=== PATIENT | female | born 1970 | race African-American/Black ===

== ENCOUNTER → 2016-07-04 | Outpatient (CLI) | payer OTHER ==
[~2016-07-04] MED LIST: [UNRECOGNIZED DRUG - REMARK]
[2016-07-04 10:11] LABS: BASO % 0.3 %; BASO ABS # 0.01 K/uL (0-0.2); COMPLETE YES; EOS % 7.8 %; HEMATOCRIT 38.1 % (37-47); LYMPH % 41.9 %; LYMPH ABS # 1.55 K/uL (1.2-3.4); MEAN CELL VOLUME 83.4 fL (80-100); MEAN CORPUSCULAR HEMOGLOBIN 28.9 pg (25-34); MEAN CORPUSCULAR HGB CONC 34.6 g/dl (32-36); MEAN PLATELET VOLUME 10.1 fL (7.4-10.4); MONO % 8.6 %; NEUT % 41.4 %; PLATELET COUNT 181 K/uL (130-400); RED BLOOD COUNT 4.57 M/uL (4.2-5.4)
[2016-07-04 11:24] LABS: ALKALINE PHOSPHATASE 94 U/L (45-117); ALT/SGPT 26 U/L (12-78); AST/SGOT 18 U/L (15-37); BLOOD UREA NITROGEN 13 mg/dl (7-18); BUN/CREATININE RATIO 22.3 (10-20); CALCIUM 8.9 mg/dl (8.5-10.1); CARBON DIOXIDE 27 mmol/L (21-32); CHLORIDE 106 mmol/L (98-107); GLUCOSE 83 mg/dl (70-99); HDL CHOLESTEROL 115 mg/dl; POTASSIUM 3.7 mmol/L (3.5-5.1); SODIUM 142 mmol/L (136-145)
[2016-07-04 11:25] LABS: CHOLESTEROL 237 mg/dl (0-200); CHOLESTEROL/HDL RATIO 2.1; LDL CHOLESTEROL CALCULATED 114 mg/dl; TRIGLYCERIDES 38 mg/dl (0-150); VERY LOW DENSITY LIPOPROT CALC 8 mg/dl
[2016-07-06 19:32] LABS: LSP % CELLS ANALYZED CD4 31 % (30-61); LSP ABSOLUTE CT CD4 492 cells/uL (490-1740); LSP LYMPHOCYTES ABSOLUTE 1598 cells/uL (850-3900)
== END | disposition home or self-care (01) ==
LOC: C.LAB 09:06
PROVIDERS: ATTEND Internal Medicine Infectious Disease
DX: B20 Human immunodeficiency virus [HIV] disease (principal)

== ENCOUNTER → 2017-03-07 | Outpatient (CLI) | payer OTHER ==
[2017-03-07 12:15] LABS: BASO % 0.6 %; BASO ABS # 0.02 K/uL (0-0.2); COMPLETE YES; EOS % 14.8 %; HEMATOCRIT 35.4 % (37-47); IG% 0.3 %; LYMPH % 43.7 %; LYMPH ABS # 1.45 K/uL (1.2-3.4); MEAN CELL VOLUME 85.1 fL (80-100); MEAN CORPUSCULAR HEMOGLOBIN 29.3 pg (25-34); MEAN CORPUSCULAR HGB CONC 34.5 g/dl (32-36); MEAN PLATELET VOLUME 9.9 fL (7.4-10.4); MONO % 7.2 %; NEUT % 33.4 %; PLATELET COUNT 162 K/uL (130-400); RED BLOOD COUNT 4.16 M/uL (4.2-5.4); WHITE BLOOD COUNT 3.32 K/uL (4.8-10.8)
[2017-03-07 12:34] LABS: ALKALINE PHOSPHATASE 85 U/L (45-117); ALT/SGPT 23 U/L (12-78); AST/SGOT 19 U/L (15-37); BLOOD UREA NITROGEN 15 mg/dl (7-18); BUN/CREATININE RATIO 25.9 (10-20); CALCIUM 9.1 mg/dl (8.5-10.1); CARBON DIOXIDE 28 mmol/L (21-32); CHLORIDE 107 mmol/L (98-107); CHOLESTEROL 186 mg/dl (0-200); CREATININE 0.58 mg/dl (0.60-1.20); GLUCOSE 88 mg/dl (70-99); POTASSIUM 4.2 mmol/L (3.5-5.1); SODIUM 140 mmol/L (136-145); TRIGLYCERIDES 67 mg/dl (0-150); VERY LOW DENSITY LIPOPROT CALC 13 mg/dl
[2017-03-07 12:36] LABS: CHOLESTEROL/HDL RATIO 2.3; HDL CHOLESTEROL 82 mg/dl; LDL CHOLESTEROL CALCULATED 91 mg/dl
[2017-03-09 20:36] LABS: LSP % CELLS ANALYZED CD4 33 % (30-61); LSP ABSOLUTE CT CD4 457 cells/uL (490-1740); LSP LYMPHOCYTES ABSOLUTE 1378 cells/uL (850-3900)
== END | disposition home or self-care (01) ==
LOC: C.LAB1850 11:10
PROVIDERS: ATTEND Internal Medicine Infectious Disease
DX: B20 Human immunodeficiency virus [HIV] disease (principal)

== ENCOUNTER → 2017-08-24 | Outpatient (CLI) | payer OTHER ==
[2017-08-24 12:05] LABS: BASO % 0.6 %; BASO ABS # 0.02 K/uL (0-0.2); EOS ABS # 0.51 K/uL (0-0.5); HEMOGLOBIN 12.2 g/dL (12.0-16.0); LYMPH % 45.9 %; LYMPH ABS # 1.56 K/uL (1.2-3.4); MEAN CELL VOLUME 84.7 fL (80-100); MEAN CORPUSCULAR HEMOGLOBIN 29.5 pg (25-34); MEAN CORPUSCULAR HGB CONC 34.9 g/dl (32-36); MEAN PLATELET VOLUME 9.7 fL (7.4-10.4); MONO % 7.4 %; MONO ABS # 0.25 K/uL (0.11-0.59); NEUT % 31.1 %; NEUT ABS # 1.06 K/uL (1.4-6.5); PLATELET COUNT 167 K/uL (130-400); RED CELL DISTRIBUTION WIDTH CV 13.8 % (11.5-14.5); RED CELL DISTRIBUTION WIDTH SD 42.7 fL (36.4-46.3)
[2017-08-24 12:14] LABS: ALBUMIN 3.5 gm/dl (3.4-5.0); ALT/SGPT 24 U/L (12-78); BLOOD UREA NITROGEN 12 mg/dl (7-18); CALCIUM 8.5 mg/dl (8.5-10.1); CARBON DIOXIDE 29 mmol/L (21-32); CHOLESTEROL 188 mg/dl (0-200); CREATININE 0.58 mg/dl (0.60-1.20); GLUCOSE 84 mg/dl (70-99); POTASSIUM 3.9 mmol/L (3.5-5.1); SODIUM 139 mmol/L (136-145)
[2017-08-24 12:17] LABS: ALKALINE PHOSPHATASE 76 U/L (45-117); AST/SGOT 18 U/L (15-37); LDL CHOLESTEROL CALCULATED 87 mg/dl; TOTAL PROTEIN 6.9 gm/dl (6.4-8.2)
[2017-08-26 23:59] LABS: LSP % CELLS ANALYZED CD4 31 % (30-61); LSP ABSOLUTE CT CD4 485 cells/uL (490-1740)
== END | disposition home or self-care (01) ==
LOC: C.LAB1850 10:25
PROVIDERS: ATTEND Internal Medicine Infectious Disease
DX: B20 Human immunodeficiency virus [HIV] disease (principal)

== ENCOUNTER → 2018-02-21 | Outpatient (CLI) | payer OTHER ==
[2018-02-21 10:14] LABS: BASO % 0.5 %; BASO ABS # 0.02 K/uL (0-0.2); EOS % 15.6 %; HEMATOCRIT 37.9 % (37-47); HEMOGLOBIN 12.8 g/dL (12.0-16.0); LYMPH % 41.7 %; MEAN CELL VOLUME 85.4 fL (80-100); MEAN CORPUSCULAR HEMOGLOBIN 28.8 pg (25-34); MEAN CORPUSCULAR HGB CONC 33.8 g/dl (32-36); MONO % 6.3 %; MONO ABS # 0.24 K/uL (0.11-0.59); NEUT % 35.9 %; NEUT ABS # 1.38 K/uL (1.4-6.5); PLATELET COUNT 174 K/uL (130-400); RED CELL DISTRIBUTION WIDTH CV 14.1 % (11.5-14.5); RED CELL DISTRIBUTION WIDTH SD 43.6 fL (36.4-46.3); WHITE BLOOD COUNT 3.84 K/uL (4.8-10.8)
[2018-02-21 11:12] LABS: ALBUMIN 3.6 gm/dl (3.4-5.0); ALKALINE PHOSPHATASE 86 U/L (45-117); ALT/SGPT 25 U/L (12-78); AST/SGOT 18 U/L (15-37); BLOOD UREA NITROGEN 11 mg/dl (7-18); CALCIUM 9.1 mg/dl (8.5-10.1); CARBON DIOXIDE 27 mmol/L (21-32); CHOLESTEROL 213 mg/dl (0-200); CREATININE 0.57 mg/dl (0.60-1.20); GLUCOSE 79 mg/dl (70-99); LDL CHOLESTEROL CALCULATED 98 mg/dl; POTASSIUM 4.2 mmol/L (3.5-5.1); SODIUM 141 mmol/L (136-145); TOTAL PROTEIN 7.4 gm/dl (6.4-8.2)
[2018-02-24 14:32] LABS: LSP % CELLS ANALYZED CD4 31 % (30-61); LSP ABSOLUTE CT CD4 474 cells/uL (490-1740)
== END | disposition home or self-care (01) ==
LOC: C.LAB1850 09:30
PROVIDERS: ATTEND Internal Medicine Infectious Disease
DX: B20 Human immunodeficiency virus [HIV] disease (principal)

== ENCOUNTER 2020-08-12 11:31 | Inpatient (IN) ==
[2020-08-12] MEDS ORDERED: SODIUM CHLORIDE 0.9% 1000ML 1,000 ML IV SCH (12:30)
--- NOTE | 2020-08-12 12:53 | XRay Report ---
XR chest 1V portable CLINICAL HISTORY: SEPSIS COMPARISON STUDY: Chest radiograph August 04, 2010. FINDINGS: Mild cardiomegaly is noted. There is mild interstitial thickening. Mild left basilar opacit y is present. There is no pneumothorax or pleural effusion. IMPRESSION: 1. Mild interstitial thickening. This may reflect pulmonary vascular congestion on an infectious proc ess. 2. Mild left basilar opacity. 3. Cardiomegaly. ACT 112: Negative or not required by law. Electronically signed by: Kai Villanueva M.D. 08/12/2020 12:52 PM
[2020-08-12] MEDS ORDERED: CEFEPIME 2,000 MG/20 ML VIAL IV STA (13:07)
[2020-08-12 13:14] LABS: Mean Corpuscular Hgb Conc 34.8 g/dL (32-36); Platelet Count 111 K/uL (130-400)
[2020-08-12 13:17] LABS: INR 1.1 (0.9-1.1); Partial Thromboplastin Ratio 0.8; Partial Thromboplastin Time 21.8 Seconds (21.0-31.0)
[2020-08-12 13:21] LABS: Albumin Level 2.5 gm/dl (3.4-5.0); BUN Creatinine Ratio 8.7 (10-20); Calcium 8.2 mg/dl (8.5-10.1); Creatinine Clr Calc Pharmacy 52.3 ml/min; Est GFR (African American) 59.2; Est GFR (Non-African American) 51.1; Magnesium 1.8 mg/dl (1.8-2.4); Potassium 3.3 mmol/L (3.5-5.1)
[2020-08-12 13:24] LABS: Albumin Globulin Ratio 0.6 (0.9-2); Bilirubin,Total 1.8 mg/dl (0.2-1); Globulin 4.2 gm/dl (2.5-4.0); Total Protein 6.7 gm/dl (6.4-8.2)
[2020-08-12 13:47] LABS: Appearance Urine Clear (Clear); Bacteria Urine Automated Negative (Negative); Blood Urine 2+ (Negative); Color Urine Dark Yellow; Epithelial Cell Urine Auto >30 /lpf (0-5); Glucose Urine UA Negative (Negative); Ketones Urine Trace (Negative); Leukocyte Esterase Urine Negative (Negative); Nitrite Urine Negative (Negative); Protein Urine 1+ (Negative); Specific Gravity Urine 1.014 (1.000-1.030); Urobilinogen Urine Negative (Negative)
[2020-08-12 13:49] LABS: Bilirubin Urine 1+ (Negative)
[2020-08-12 13:49] LABS: Hematocrit (blood only) 19.8 % (37-47); Hemoglobin 6.9 g/dL (12.0-16.0); Mean Corpuscular Hemoglobin 27.9 pg (25-34); Mean Corpuscular Volume 80.2 fL (80-100); Nucleated RBC # (auto) 0.03 K/uL (0-0); Nucleated RBC % (auto) 0.8 %; RDW Coefficient of Variation 15.6 % (11.5-14.5); RDW Standard Deviation 44.3 fL (36.4-46.3); Red Blood Count 2.47 M/uL (4.2-5.4); White Blood Count 3.32 K/uL (4.8-10.8)
[2020-08-12 14:01] LABS: Basophils # (auto) 0.01 K/uL (0-0.2); Basophils % (auto) 0.3 %; Eosinophils # (auto) 0.02 K/uL (0-0.5); Eosinophils % (auto) 0.6 %; Immature Granulocytes # (auto) 0.05 K/uL (0.00-0.02); Immature Granulocytes % (auto) 1.5 %; Lymphocytes # (auto) 1.17 K/uL (1.2-3.4); Lymphocytes % (auto) 35.2 %; Monocytes # (auto) 0.55 K/uL (0.11-0.59); Monocytes % (auto) 16.6 %; Neutrophils # (auto) 1.52 K/uL (1.4-6.5); Neutrophils % (auto) 45.8 %; Polychromasia 1+
[2020-08-12] MEDS ORDERED: SODIUM CHLORIDE 0.9% 250 ML IV PRN ×2 (14:08→18:58)
[2020-08-12 14:23] LABS: Influenza A virus by PCR Negative (Neg); Influenza B virus by PCR Negative (Neg); RSV by PCR Negative (Neg); SARS CoV2 RNA(COVID-19) InHosp NEGATIVE (Negative)
[2020-08-12 14:27] LABS: Reticulocyte % 4.9 % (0.5-2.0); Reticulocytes # 0.12 10^6/uL (0.02-0.10)
[2020-08-12] MEDS ORDERED: SODIUM CHLORIDE 0.9% 1000ML 1,000 ML IV ONE (14:35)
--- NOTE | 2020-08-12 16:00 | History & Physical Report ---
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 Recommended treatment with corticosteroids, prednisone recommended initial dose of 1.01.5 mg/kg/day for 13 weeks until hemoglobin levels greater than 10 g/dL are reached. Response occurs mainly during the second week, and if none or minimal improvement is observed in the third week, this therapy is assumed to be ineffective. After stabilization of hemoglobin, prednisone should be gradually and slowly tapered off at 1015 mg weekly to a daily dose of 2030 mg, then by 5 mg every 12 weeks until a dose of 15 mg, and subsequently by 2.5 mg every two weeks with the aim of withdrawing the drug. (2) ALEX (acute kidney injury): concern from hemolysis, will hydrate and follow patient is of some mild hypokalemia she will be given 1 dose of potassium 20 mEq tonight and follow her labs in the morning (3) HIV disease: continues on tenofov, will ask pt to bring it in (4) Fever: maybe from hemolysis, will obtain blood and urine cultures and given persistent fever will continue Cefepime as the antibiotic, , CXR does not look specific (5) Hypertension: continues on amlodipine and coreg, will have hydralazine prn, and hold losartan with alex patient (6) DVT prophylaxis: scd History of Present Illness Primary Care Provider: Theresa Tang MD Patient presents to the emergency department with arthralgias myalgias and fevers. Patient was recently treated to [facility] with Artesunate for malaria. She presents to our institution tonight hypertensive and tachycardic with a temperature of 99.7 (Covid negative). She is anemia with hemoglobin 6.9 thrombocytopenia with a platelet count of 111 leukopenia with white count of 3.32. Patient is HIV positive and takes antiviral medications. However there is concern with elevation of LDH elevation of her bili and some microscopic hematuria. A pending Adela and haptoglobin test. The concern is that she may have hemolytic anemia which is also been associated with the use of the medication she had for malaria. She additionally has acute kidney injury with creatinine 1.23 elevation of her bili and transaminases A peripheral smear was performed on admission and did not show any inclusion bodies to be consistent with parasite blood infection Allergies Allergy/AdvReac Type Severity Reaction Status Date / Time Sulfa (Sulfonamide Allergy SWELLING Verified 08/12/20 13:27 Antibiotics) OF FACE Home Medications Medication Instructions Recorded Confirmed Type fluocinonide 0.05 % topical 1 appln TOPICAL TID #1 gm 02/25/19 08/12/20 History ointment amlodipine 10 mg tablet 10 mg PO DAILY #90 tab 03/15/20 08/12/20 Rx carvedilol 25 mg tablet 25 mg PO BID #180 tab 03/15/20 08/12/20 Rx losartan 100 1 tab PO DAILY #90 tab 03/15/20 08/12/20 Rx mg-hydrochlorothiazide 25 mg tablet skpaayeya-[id number]-ufapvxi 1 tab PO DAILY 08/04/20 08/12/20 History Past Med/Surg History Medical History Herpes zoster HIV disease Hypertension Surgical History H/O tooth extraction Family History Mother Diabetes Hypertension Father , 60s No problems noted. Brother Hypertension Brother No problems noted. Sister Hypertension Sister , 45 No problems noted. Son Meningitis Son No problems noted. Son No problems noted. 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 Beliefs That Will Affect Care: Anglican Anglican Beliefs: Druze marital status: Single Current Living Situation: Family Current Living Situation Comment: lives with son current occupational status: employed current occupation: [employer] Other Information That Helps Us Care for You: No Feels Safe at Home: Yes Safety Concerns: Feels Safe At This Time Childhood Exposure to Second-Hand Smoke: No Dental Care, Regularly: Yes Physical Activity Frequency: Does not Exercise Seatbelt Use: always Sunscreen Use: Yes Assistive Devices: Denture - Lower Review of Systems Review of Systems: Moderate distress and fatigue, arthralgias and myalgias no headache, blurry or double vision no speech or swallowing issues no chest pain, pressure or palpitations no shortness of breath, cough or wheezes no abdominal pain, tickly in the left upper quadrant plain nausea or vomiting, recently has had increasing diarrhea no dysuria, but of some mild color change to her urine but this is since cleared no focal joint pain or swelling of painful joints diffusely and myalgias no back pain, CVA tenderness or radicular pain no bruising, bleeding or rashes no focal signs of weakness or numbness or altered sensation no complaints of anxiety or depression.. Physical Exam Physical Exam: The patient appeared well nourished and normally developed. He is in mild to moderate distress Vital signs as documented. Head exam is normocephalic atraumatic no scleral icterus Neck is without JVD, thyromegaly, or carotid bruits. Lungs are clear to auscultation, no focal loss of breath sounds Cardiac exam, Rhythm is regular.. No murmurs, rubs or gallops. Abdominal exam reveals normal bowel sounds, soft non tender, no masses no hepatosplenomegaly is noted Extremities are nonedematous and both pedal pulses are present Neurologic exam is alert and oriented, no focal loss of strength or sensation Skin is without bruises or rashes Psychologically is without concerns for anxiety or depression Results & Data Results & [facility] Vital Signs (Past 12 Hours) Vital Signs Temp Pulse Pulse Resp BP BP Pulse Ox 08/12/20 15:30 113 H 27 H 167/96 H 94 08/12/20 15:00 117 H 23 141/89 H 100 08/12/20 14:58 115 H 24 137/83 99 08/12/20 14:00 115 H 20 174/104 H 94 08/12/20 13:30 116 H 34 H 163/99 H 95 08/12/20 13:00 108 H 20 148/84 H 97 08/12/20 12:30 113 H 22 167/106 H 100 08/12/20 12:25 99.7 F H 08/12/20 12:11 111 H 20 127/87 98 08/12/20 11:34 98.6 F 121 H 18 154/90 H 97 EKG shows sinus tachycardia without acute changes Chest x-ray shows mild interstitial thickening mild basilar opacity and cardiomegaly however clinically this does not appear to be infectious to me. The patient did receive 1 dose of cefepime in the ER blood cultures were obtained at this time PG Care Time/CCT Total # of Minutes Spent Total Time Spent with Patient: Total time spent is greater than 50% in coordination of care (as documented) at patient's floor/unit and/or counseling patient: Coding Level of Care Code 83837 Initial Inpt Care Lvl 3 Diagnoses Hemolytic anemia D58.9 ALEX (acute kidney injury) N17.9 HIV disease B20 Fever R50.81 Fever type: due to other condition Hypertension I10 DVT prophylaxis Z29.9 (1) Fever Fever type: due to other condition Qualified Code(s): R50.81 - Fever presenting with conditions classified elsewhere
[2020-08-12] MEDS ORDERED: predniSONE 20 MG TAB PO SCH ×2 (16:15→17:15)
--- NOTE | 2020-08-12 16:35 | Electrocardiogram Report ---
Test Reason : Blood Pressure : / mmHG Vent. Rate : 110 BPM Atrial Rate : 110 BPM P-R Int : 168 ms QRS Dur : 078 ms QT Int : 344 ms P-R-T Axes : 042 072 078 degrees QTc Int : 465 ms Sinus tachycardia Otherwise normal ECG When compared with ECG of 04-AUG-2020 09:49, Nonspecific T wave abnormality no longer evident in Lateral leads Confirmed by Sanjay Hill ([id number]) on 08/12/2020 4:34:44 PM Referred By: Confirmed By:Sanjay Hill
[2020-08-12] MEDS ORDERED: predniSONE 50 MG TAB PO SCH ×2 (16:45→17:15)
[2020-08-12] MEDS ORDERED: ONDANSETRON INJ 2 MG/ML 2 ML VIAL IV PRN (18:58)
[2020-08-12] MEDS ORDERED: ALUMINUM/MAGNESIUM SUSP 30 ML UDC PO PRN (18:58)
[2020-08-12] MEDS ORDERED: ACETAMINOPHEN 325 MG TAB PO PRN (18:58)
[2020-08-12] MEDS ORDERED: cloNIDine HCL 0.1 MG TAB PO PRN (18:58)
[2020-08-12] MEDS ORDERED: LORazepam 0.5 MG TAB PO PRN (18:58)
[2020-08-12] MEDS ORDERED: Nursing to Pharmacy Communication SCH (19:45)
[2020-08-12] MEDS ORDERED: hydrALAZINE HCL 20 MG/ML VIAL IV PRN (20:26)
[2020-08-12] MEDS ORDERED: oxyCODONE HCL IR 5 MG TAB (IMMEDIATE RELEASE) PO PRN (20:26)
[2020-08-12] MEDS ORDERED: POTASSIUM CHLORIDE CRTAB 20 MEQ TABCR PO ONE (20:28)
[2020-08-12] MEDS ORDERED: POTASSIUM CHLORIDE CRTAB 20 MEQ TABCR PO SCH (21:00)
[2020-08-12] MEDS: FLUOCINONIDE 0.05% OINT 15 GM TUBE EXT SCH (21:18)
[2020-08-12] MEDS: carvediloL 25 MG TAB PO SCH (21:18)
[2020-08-12] MEDS: [UNRECOGNIZED DRUG - OTHER] PO SCH (21:18)
[2020-08-12] MEDS: FAMOTIDINE 40 MG TABLET PO SCH (21:19)
[2020-08-13] MEDS: CEFEPIME 2,000 MG in SYRINGE 0 ML IV SCH ×2 (01:12→12:07)
[2020-08-13 06:37] LABS: Hemoglobin 8.7 g/dL (12.0-16.0); Mean Corpuscular Hemoglobin 28.4 pg (25-34); Mean Corpuscular Hgb Conc 34.8 g/dL (32-36); Mean Corpuscular Volume 81.7 fL (80-100); Mean Platelet Volume 10.5 fL (7.4-10.4); Platelet Count 124 K/uL (130-400); RDW Standard Deviation 45.8 fL (36.4-46.3); Red Blood Count 3.06 M/uL (4.2-5.4); White Blood Count 4.36 K/uL (4.8-10.8)
--- NOTE | 2020-08-13 07:12 | Emergency Department Note ---
Impression & Plan Hemolytic anemia, History of malaria, HIV (human immunodeficiency virus infection) ED Provider Note NAME: OKSANA MALIK AGE: 49 SEX: F ARRIVES VIA: Walk-In INFORMANT: Patient ED PROVIDER(S): Coni Mahmood MD CHIEF COMPLAINT: Tachycardia, fatigue PLAN: Disposition: Inpatient Condition: Fair Referral: Hospitalist MEDICAL DECISION MAKING:Pt was evaluated and appeared to be in no distress. IV access was obtained and lab work was drawn. 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 She was hydrated with 2 L IV NSS. Lab work reveals a significant anemia with hgb at 6.9, bilirubin of 1.8 with elevated but improving LFTs. Blood cx were sent and pt was medicated with 2gm of IV cefepime. CXR is significant for mild interstitial thickening. RSV, influenza and COVID testing are negative. Pt was consented for transfusion. PRBC x 2 units were administered and the pt was discussed with the hospitalist service for further management. Triage Nursing notes reviewed. Prior medical records reviewed [facility] d/c summary Vital Signs: reviewed and remarkable for tachycardia Differential diagnosis: Viral syndrome, medication reaction, otitis, pharyngitis, pneumonia, influenza, meningitis, urinary tract infection, sepsis, bacteremia, as well as other pathologies. ER treatment provided: IV NSS IV cefepime Diagnostics interpreted by me: ECG: ST at 110 bpm, normal ST segments, QTc prolonged 465, no PVC, no PAC. Cardiac Monitoring: An order for cardiac monitoring was placed and pt was noted to be in a ST at 121 bpm. Laboratory studies: See below Imaging studies: XR chest 1V portable CLINICAL HISTORY: SEPSIS COMPARISON STUDY: Chest radiograph August 04, 2010. FINDINGS: Mild cardiomegaly is noted. There is mild interstitial thickening. Mild left basilar opacity is present. There is no pneumothorax or pleural effusion. IMPRESSION: 1. Mild interstitial thickening. This may reflect pulmonary vascular congestion on an infectious process. 2. Mild left basilar opacity. 3. Cardiomegaly. ACT 112: Negative or not required by law. Electronically signed by: Kai Villanueva M.D. 08/12/2020 12:52 PM Dictated: 08/12/20 1245Transcribed: 08/12/20 1245 Consultation(s): Pharmacy Hospitalist HPI: 49/F arrives for evaluation of high heart rate, fatigue and general illness. Pt was sent to [facility] a bit over 1 week ago after a diagnosis of malaria. Pt was treated with Artesunate. She states she was d/c without any further medications, being told she completed the course of treatment. Pt saw her PCP today in followup but began to feel worse over the last few days. She denies high fevers, but admits to fatigue and aches. She denies significant SOB, cough, v/d/ Pt is known to be to HIV positive and states her viral load is undetectable. ROS: See above HPI for pertinent positives & negatives. A total of 10 systems reviewed and were otherwise negative. PAST MEDICAL HISTORY:See Below PAST SURGICAL HISTORY:See Below FAMILY HISTORY:See Below SOCIAL HISTORY:See Below HOME MEDICATIONS:See Below ALLERGIES:See Below VITALS:See Below PHYSICAL EXAMINATION: Vital signs reviewed. General: Somewhat ill appearing 49 yo female, in no significant distress. HEENT: No scleral icterus, PERRLA, neck supple. Atraumatic. Cardiovascular: Tachycardic and regular, no extra sounds. Pulmonary: Clear to auscultation bilaterally, normal work of breathing. Abdomen: Soft, nontender, nondistended, positive bowel sounds. Musculoskeletal: Atraumatic, no peripheral edema. Neurologic: Patient awake alert and oriented x 3, no meningeal signs Skin: Warm, dry, no rash The high probability of a clinically significant, sudden or life threatening deterioration required my full and direct attention, intervention and personal management. The aggregate critical care time was 40 minutes. This time is in addition to time spent performing reported procedures but includes the following: [x] Data Review and interpretation [x] Patient assessment and monitoring of vital signs [x] Documentation [x] Medication orders and management Coni Mahmood MD Past Med/Surg History Medical History Herpes zoster HIV disease Hypertension Surgical History H/O tooth extraction Family History Mother Diabetes Hypertension Father , 60s No problems noted. Brother Hypertension Brother No problems noted. Sister Hypertension Sister , 45 No problems noted. Son Meningitis Son No problems noted. Son No problems noted. Denies family history of Ovarian cancer Prostate cancer Myocardial infarction Breast cancer Colorectal cancer Social History Smoking Status: Never smoker Hx Alcohol Use: Yes Alcohol type: beer Alcohol Intake Frequency: 2-3 x/Week Hx Substance Use: No Preferred Language: Spanish Communication Ability: Effective Food And Beverage Outlets Manager Required: No Beliefs That Will Affect Care: Tenriism Tenriism Beliefs: Zoroastrianism marital status: Single Current Living Situation: Family Current Living Situation Comment: lives with son current occupational status: employed current occupation: [employer] Other Information That Helps Us Care for You: No Feels Safe at Home: Yes Safety Concerns: Feels Safe At This Time Childhood Exposure to Second-Hand Smoke: No Dental Care, Regularly: Yes Physical Activity Frequency: Does not Exercise Seatbelt Use: always Sunscreen Use: Yes Assistive Devices: None Allergies Allergies Allergy/AdvReac Type Severity Reaction Status Date / Time Sulfa (Sulfonamide Allergy SWELLING Verified 08/12/20 13:27 Antibiotics) OF FACE Home Meds Home Medications Medication Instructions Recorded Confirmed fluocinonide 0.05 % topical 1 appln TOPICAL TID #1 gm 02/25/19 08/12/20 ointment [id number]-[id number]-[id number] 1 tab PO DAILY 08/04/20 08/12/20 Previous Rx's Medication Instructions Recorded amlodipine 10 mg tablet 10 mg PO DAILY #90 tab 03/15/20 carvedilol 25 mg tablet 25 mg PO BID #180 tab 03/15/20 losartan 100 1 tab PO DAILY #90 tab 03/15/20 mg-hydrochlorothiazide 25 mg tablet Results & Data (ED) Vital Signs Vital Signs - 24 hr 08/12/20 11:34 08/12/20 12:11 08/12/20 12:23 Temperature 37 C Temperature Source Temporal Artery Scan Pulse Rate 121 H Pulse Rate [Apical] 111 H Pulse Rate from SpO2 Sensor Respiratory Rate 18 20 Respiratory Effort / Characteristics Non-Labored Spontaneous Non-Labored Non-Labored Spontaneous Respiratory Depth Normal Normal Blood Pressure 154/90 H Blood Pressure [Left Arm] 127/87 Blood Pressure Mean 111 Blood Pressure Mean [Left Arm] 100 Pulse Oximetry 97 98 Oxygen Delivery Method Room Air Room Air Sepsis Recent Fever Within 48 Hours No Sepsis New/Unexplained Change in Mental Status No Sepsis Action Taken by Nursing No Action Required 08/12/20 12:25 08/12/20 12:30 08/12/20 13:00 Temperature 37.6 C H Temperature Source Oral Pulse Rate 113 H 108 H Pulse Rate [Apical] Pulse Rate from SpO2 Sensor 113 H 108 H Respiratory Rate 22 20 Respiratory Effort / Characteristics Respiratory Depth Blood Pressure 167/106 H 148/84 H Blood Pressure [Left Arm] Blood Pressure Mean 126 105 Blood Pressure Mean [Left Arm] Pulse Oximetry 100 97 Oxygen Delivery Method Room Air Room Air Sepsis Recent Fever Within 48 Hours Sepsis New/Unexplained Change in Mental Status Sepsis Action Taken by Nursing 08/12/20 13:30 08/12/20 14:00 08/12/20 14:58 Temperature Temperature Source Pulse Rate 116 H 115 H 115 H Pulse Rate [Apical] Pulse Rate from SpO2 Sensor 116 H 115 H 117 H Respiratory Rate 34 H 20 24 Respiratory Effort / Characteristics Respiratory Depth Blood Pressure 163/99 H 174/104 H 137/83 Blood Pressure [Left Arm] Blood Pressure Mean 120 127 101 Blood Pressure Mean [Left Arm] Pulse Oximetry 95 94 99 Oxygen Delivery Method Room Air Room Air Room Air Sepsis Recent Fever Within 48 Hours Sepsis New/Unexplained Change in Mental Status Sepsis Action Taken by Nursing 08/12/20 15:00 08/12/20 15:30 Temperature Temperature Source Pulse Rate 117 H 113 H Pulse Rate [Apical] Pulse Rate from SpO2 Sensor 117 H 113 H Respiratory Rate 23 27 H Respiratory Effort / Characteristics Respiratory Depth Blood Pressure 141/89 H 167/96 H Blood Pressure [Left Arm] Blood Pressure Mean 106 119 Blood Pressure Mean [Left Arm] Pulse Oximetry 100 94 Oxygen Delivery Method Room Air Room Air Sepsis Recent Fever Within 48 Hours Sepsis New/Unexplained Change in Mental Status Sepsis Action Taken by Nursing Laboratory Data Result diagrams: 08/13/20 05:55 08/12/20 12:48 Lab Results 08/12/20 08/12/20 08/12/20 Range/Units 12:45 12:48 12:48 WBC 3.32 L (4.8-10.8) K/uL RBC 2.47 L (4.2-5.4) M/uL Hgb 6.9 L* (12.0-16.0) g/dL Hct 19.8 L* (37-47) % MCV 80.2 (80-100) fL MCH 27.9 (25-34) pg MCHC 34.8 (32-36) g/dL RDW Std Deviation 44.3 (36.4-46.3) fL RDW Coeff of Raphael 15.6 H (11.5-14.5) % Plt Count 111 L (130-400) K/uL MPV 10.0 (7.4-10.4) fL Immature Gran % (Auto) 1.5 % Neut % (Auto) 45.8 % Lymph % (Auto) 35.2 % [place] % (Auto) 16.6 % Eos % (Auto) 0.6 % Baso % (Auto) 0.3 % Reticulocyte % (Auto) (0.5-2.0) % Neut # (Auto) 1.52 (1.4-6.5) K/uL Lymph # (Auto) 1.17 L (1.2-3.4) K/uL [place] # (Auto) 0.55 (0.11-0.59) K/uL Eos # (Auto) 0.02 (0-0.5) K/uL Baso # (Auto) 0.01 (0-0.2) K/uL Reticulocyte # (0.02-0.10) 10^6/uL Immature Gran # (Auto) 0.05 H (0.00-0.02) K/uL Absolute Nucleated RBC 0.03 H (0-0) K/uL Nucleated RBC % (auto) 0.8 % Polychromasia 1+ PT 11.0 (9.0-12.0) Seconds INR 1.1 (0.9-1.1) APTT 21.8 (21.0-31.0) Seconds PTT Ratio 0.8 Sodium (136-145) mmol/L Potassium (3.5-5.1) mmol/L Chloride (98-107) mmol/L Carbon Dioxide (21-32) mmol/L Anion Gap (3-11) BUN (7-18) mg/dl Creatinine (0.6-1.2) mg/dl Est Cr Clr Drug Dosing ml/min Est GFR ( Amer) Est GFR (Non-Af Amer) BUN/Creatinine Ratio (10-20) Glucose (70-99) mg/dl Lactate (0.4-2.0) mmol/L Calcium (8.5-10.1) mg/dl Magnesium (1.8-2.4) mg/dl Total Bilirubin (0.2-1) mg/dl AST (15-37) U/L ALT (12-78) U/L Alkaline Phosphatase (45-117) U/L Lactate Dehydrogenase 608 H (84-246) U/L Total Protein (6.4-8.2) gm/dl Albumin (3.4-5.0) gm/dl Globulin (2.5-4.0) gm/dl Albumin/Globulin Ratio (0.9-2) Procalcitonin (0-0.5) ng/ml Urine Color Urine Appearance (Clear) Urine pH (4.5-7.5) Ur Specific [place] (1.000-1.030) Urine Protein (Negative) Urine Glucose (UA) (Negative) Urine Ketones (Negative) Urine Blood (Negative) Urine Nitrite (Negative) Urine Bilirubin (Negative) Urine Urobilinogen (Negative) Ur Leukocyte Esterase (Negative) Urine WBC (Auto) (0-5) /hpf Urine RBC (Auto) (0-4) /hpf U Hyaline Cast (Auto) (0-5) /lpf U Epithel Cells (Auto) (0-5) /lpf Urine Bacteria (Auto) (Negative) Nasal Screen MRSA (PCR) (Negative) COVID-19 Eval Order SARS-CoV-2 (PCR) (Negative) Influenza Type A (PCR) (Neg) Influenza Type B (PCR) (Neg) RSV (RT-PCR) (Neg) 08/12/20 08/12/20 08/12/20 Range/Units 12:48 12:48 12:48 WBC (4.8-10.8) K/uL RBC (4.2-5.4) M/uL Hgb (12.0-16.0) g/dL Hct (37-47) % MCV (80-100) fL MCH (25-34) pg MCHC (32-36) g/dL RDW Std Deviation (36.4-46.3) fL RDW Coeff of Raphael (11.5-14.5) % Plt Count (130-400) K/uL MPV (7.4-10.4) fL Immature Gran % (Auto) % Neut % (Auto) % Lymph % (Auto) % [place] % (Auto) % Eos % (Auto) % Baso % (Auto) % Reticulocyte % (Auto) (0.5-2.0) % Neut # (Auto) (1.4-6.5) K/uL Lymph # (Auto) (1.2-3.4) K/uL [place] # (Auto) (0.11-0.59) K/uL Eos # (Auto) (0-0.5) K/uL Baso # (Auto) (0-0.2) K/uL Reticulocyte # (0.02-0.10) 10^6/uL Immature Gran # (Auto) (0.00-0.02) K/uL Absolute Nucleated RBC (0-0) K/uL Nucleated RBC % (auto) % Polychromasia PT (9.0-12.0) Seconds INR (0.9-1.1) APTT (21.0-31.0) Seconds PTT Ratio Sodium 138 (136-145) mmol/L Potassium 3.3 L (3.5-5.1) mmol/L Chloride 105 (98-107) mmol/L Carbon Dioxide 24 (21-32) mmol/L Anion Gap 9.0 (3-11) BUN 11 (7-18) mg/dl Creatinine 1.23 H (0.6-1.2) mg/dl Est Cr Clr Drug Dosing 52.3 ml/min Est GFR ( Amer) 59.2 Est GFR (Non-Af Amer) 51.1 BUN/Creatinine Ratio 8.7 L (10-20) Glucose 93 (70-99) mg/dl Lactate 0.9 (0.4-2.0) mmol/L Calcium 8.2 L (8.5-10.1) mg/dl Magnesium 1.8 (1.8-2.4) mg/dl Total Bilirubin 1.8 H (0.2-1) mg/dl AST 103 H (15-37) U/L ALT 201 H (12-78) U/L Alkaline Phosphatase 263 H (45-117) U/L Lactate Dehydrogenase (84-246) U/L Total Protein 6.7 (6.4-8.2) gm/dl Albumin 2.5 L (3.4-5.0) gm/dl Globulin 4.2 H (2.5-4.0) gm/dl Albumin/Globulin Ratio 0.6 L (0.9-2) Procalcitonin 0.37 (0-0.5) ng/ml Urine Color Urine Appearance (Clear) Urine pH (4.5-7.5) Ur Specific [place] (1.000-1.030) Urine Protein (Negative) Urine Glucose (UA) (Negative) Urine Ketones (Negative) Urine Blood (Negative) Urine Nitrite (Negative) Urine Bilirubin (Negative) Urine Urobilinogen (Negative) Ur Leukocyte Esterase (Negative) Urine WBC (Auto) (0-5) /hpf Urine RBC (Auto) (0-4) /hpf U Hyaline Cast (Auto) (0-5) /lpf U Epithel Cells (Auto) (0-5) /lpf Urine Bacteria (Auto) (Negative) Nasal Screen MRSA (PCR) (Negative) COVID-19 Eval Order SARS-CoV-2 (PCR) (Negative) Influenza Type A (PCR) (Neg) Influenza Type B (PCR) (Neg) RSV (RT-PCR) (Neg) 08/12/20 08/12/20 08/12/20 Range/Units 12:48 13:10 13:10 WBC (4.8-10.8) K/uL RBC (4.2-5.4) M/uL Hgb (12.0-16.0) g/dL Hct (37-47) % MCV (80-100) fL MCH (25-34) pg MCHC (32-36) g/dL RDW Std Deviation (36.4-46.3) fL RDW Coeff of Raphael (11.5-14.5) % Plt Count (130-400) K/uL MPV (7.4-10.4) fL Immature Gran % (Auto) % Neut % (Auto) % Lymph % (Auto) % [place] % (Auto) % Eos % (Auto) % Baso % (Auto) % Reticulocyte % (Auto) 4.9 H (0.5-2.0) % Neut # (Auto) (1.4-6.5) K/uL Lymph # (Auto) (1.2-3.4) K/uL [place] # (Auto) (0.11-0.59) K/uL Eos # (Auto) (0-0.5) K/uL Baso # (Auto) (0-0.2) K/uL Reticulocyte # 0.12 H (0.02-0.10) 10^6/uL Immature Gran # (Auto) (0.00-0.02) K/uL Absolute Nucleated RBC (0-0) K/uL Nucleated RBC % (auto) % Polychromasia PT (9.0-12.0) Seconds INR (0.9-1.1) APTT (21.0-31.0) Seconds PTT Ratio Sodium (136-145) mmol/L Potassium (3.5-5.1) mmol/L Chloride (98-107) mmol/L Carbon Dioxide (21-32) mmol/L Anion Gap (3-11) BUN (7-18) mg/dl Creatinine (0.6-1.2) mg/dl Est Cr Clr Drug Dosing ml/min Est GFR ( Amer) Est GFR (Non-Af Amer) BUN/Creatinine Ratio (10-20) Glucose (70-99) mg/dl Lactate (0.4-2.0) mmol/L Calcium (8.5-10.1) mg/dl Magnesium (1.8-2.4) mg/dl Total Bilirubin (0.2-1) mg/dl AST (15-37) U/L ALT (12-78) U/L Alkaline Phosphatase (45-117) U/L Lactate Dehydrogenase (84-246) U/L Total Protein (6.4-8.2) gm/dl Albumin (3.4-5.0) gm/dl Globulin (2.5-4.0) gm/dl Albumin/Globulin Ratio (0.9-2) Procalcitonin (0-0.5) ng/ml Urine Color Urine Appearance (Clear) Urine pH (4.5-7.5) Ur Specific [place] (1.000-1.030) Urine Protein (Negative) Urine Glucose (UA) (Negative) Urine Ketones (Negative) Urine Blood (Negative) Urine Nitrite (Negative) Urine Bilirubin (Negative) Urine Urobilinogen (Negative) Ur Leukocyte Esterase (Negative) Urine WBC (Auto) (0-5) /hpf Urine RBC (Auto) (0-4) /hpf U Hyaline Cast (Auto) (0-5) /lpf U Epithel Cells (Auto) (0-5) /lpf Urine Bacteria (Auto) (Negative) Nasal Screen MRSA (PCR) (Negative) COVID-19 Eval Order CovFluRsv at [facility] SARS-CoV-2 (PCR) NEGATIVE (Negative) Influenza Type A (PCR) Negative (Neg) Influenza Type B (PCR) Negative (Neg) RSV (RT-PCR) Negative (Neg) 08/12/20 08/12/20 Range/Units 13:20 13:30 WBC (4.8-10.8) K/uL RBC (4.2-5.4) M/uL Hgb (12.0-16.0) g/dL Hct (37-47) % MCV (80-100) fL MCH (25-34) pg MCHC (32-36) g/dL RDW Std Deviation (36.4-46.3) fL RDW Coeff of Raphael (11.5-14.5) % Plt Count (130-400) K/uL MPV (7.4-10.4) fL Immature Gran % (Auto) % Neut % (Auto) % Lymph % (Auto) % [place] % (Auto) % Eos % (Auto) % Baso % (Auto) % Reticulocyte % (Auto) (0.5-2.0) % Neut # (Auto) (1.4-6.5) K/uL Lymph # (Auto) (1.2-3.4) K/uL [place] # (Auto) (0.11-0.59) K/uL Eos # (Auto) (0-0.5) K/uL Baso # (Auto) (0-0.2) K/uL Reticulocyte # (0.02-0.10) 10^6/uL Immature Gran # (Auto) (0.00-0.02) K/uL Absolute Nucleated RBC (0-0) K/uL Nucleated RBC % (auto) % Polychromasia PT (9.0-12.0) Seconds INR (0.9-1.1) APTT (21.0-31.0) Seconds PTT Ratio Sodium (136-145) mmol/L Potassium (3.5-5.1) mmol/L Chloride (98-107) mmol/L Carbon Dioxide (21-32) mmol/L Anion Gap (3-11) BUN (7-18) mg/dl Creatinine (0.6-1.2) mg/dl Est Cr Clr Drug Dosing ml/min Est GFR ( Amer) Est GFR (Non-Af Amer) BUN/Creatinine Ratio (10-20) Glucose (70-99) mg/dl Lactate (0.4-2.0) mmol/L Calcium (8.5-10.1) mg/dl Magnesium (1.8-2.4) mg/dl Total Bilirubin (0.2-1) mg/dl AST (15-37) U/L ALT (12-78) U/L Alkaline Phosphatase (45-117) U/L Lactate Dehydrogenase (84-246) U/L Total Protein (6.4-8.2) gm/dl Albumin (3.4-5.0) gm/dl Globulin (2.5-4.0) gm/dl Albumin/Globulin Ratio (0.9-2) Procalcitonin (0-0.5) ng/ml Urine Color Dark Yellow Urine Appearance Clear (Clear) Urine pH 7.0 (4.5-7.5) Ur Specific [place] 1.014 (1.000-1.030) Urine Protein 1+ H (Negative) Urine Glucose (UA) Negative (Negative) Urine Ketones Trace H (Negative) Urine Blood 2+ H (Negative) Urine Nitrite Negative (Negative) Urine Bilirubin 1+ H (Negative) Urine Urobilinogen Negative (Negative) Ur Leukocyte Esterase Negative (Negative) Urine WBC (Auto) 1-5 (0-5) /hpf Urine RBC (Auto) 10-30 H (0-4) /hpf U Hyaline Cast (Auto) 1-5 (0-5) /lpf U Epithel Cells (Auto) >30 H (0-5) /lpf Urine Bacteria (Auto) Negative (Negative) Nasal Screen MRSA (PCR) Negative (Negative) COVID-19 Eval Order SARS-CoV-2 (PCR) (Negative) Influenza Type A (PCR) (Neg) Influenza Type B (PCR) (Neg) RSV (RT-PCR) (Neg) Administered Medications Carvedilol (Carvedilol 25 Mg Tab) 25 mg PO BID TAE Stop: 09/11/20 20:59 Last Admin: 08/12/20 21:18 Dose: 25 mg Documented by: [id number] Efavirenz/Emtricitabine/Tenofovir (Efavirenz/Emtricit/Tenofovr Df) 1 ea PO HS TAE; Protocol Stop: 09/11/20 20:59 Last Admin: 08/12/20 21:18 Dose: 1 ea Documented by: [id number] Famotidine (Famotidine 40 Mg Tablet) 40 mg PO Q24H TAE Stop: 09/11/20 20:59 Last Admin: 08/12/20 21:19 Dose: 40 mg Documented by: [id number] Fluocinonide (Fluocinonide 0.05% Oint 15 Gm Tube) 1 appln EXT TID TAE Stop: 09/11/20 20:59 Last Admin: 08/12/20 21:18 Dose: Not Given Documented by: [id number] Cefepime HCl 2,000 mg/ Syringe 20 mls @ 5 mls/min IV Q12H [facility]; Protocol Stop: 08/23/20 00:59 Last Admin: 08/13/20 01:12 Dose: 5 mls/min Documented by: [id number] Prednisone (Prednisone 50 Mg Tab) 100 mg PO DAILY@1700 TAE Stop: 09/11/20 17:14 Last Admin: 08/12/20 17:22 Dose: 100 mg Documented by: [id number] Prednisone (Prednisone 20 Mg Tab) 20 mg PO DAILY@1700 TAE Stop: 09/11/20 17:14 Last Admin: 08/12/20 17:22 Dose: 20 mg Documented by: [id number] Discontinued Medications Sodium Chloride (Nss 1000ml) 1,000 mls @ 999 mls/hr IV .Q1H1M TAE Stop: 08/12/20 13:30 Last Infusion: 08/12/20 13:56 Dose: 0 mls/hr Documented by: [id number] Admin: 08/12/20 12:51 Dose: 999 mls/hr Documented by: [id number] Cefepime HCl (Maxipime) 2,000 mg in 20 mls @ 5 mls/min IV NOW [facility]; Protocol Stop: 08/12/20 13:10 Last Admin: 08/12/20 13:22 Dose: 5 mls/min Documented by: [id number] Sodium Chloride (Nss 1000ml) 1,000 mls @ 999 mls/hr IV .Q1H1M ONE Stop: 08/12/20 15:35 Last Infusion: 08/12/20 15:47 Dose: 0 mls/hr Documented by: [id number] Admin: 08/12/20 14:40 Dose: 999 mls/hr Documented by: [id number] Potassium Chloride (Potassium Chloride Crtab 20 Meq Tabcr) 20 meq PO ONE ONE Stop: 08/12/20 20:29 Last Admin: 08/12/20 21:18 Dose: 20 meq Documented by: [id number] Discharge Plan Visit Data Chief Complaint: Referred by Doctor Stated Complaint: + FOR MALARIA WK AGO -FATIGUE,TACHYCARDIA ED Provider: Coni Mahmood Discharge Problem: Hemolytic anemia, History of malaria, HIV (human immunodeficiency virus infection) Patient Disposition: Admitted As Inpatient Discharge Instructions Interventions: ED Discharge Assessment Last Done: 08/12/20 18:10 Discharge Problem: Hemolytic anemia Qualifiers: Hemolytic anemia type: acquired, nonautoimmune, drug-induced Qualified Code(s): 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
[2020-08-13 07:27] LABS: Albumin Level 2.5 gm/dl (3.4-5.0); BUN Creatinine Ratio 14.9 (10-20); Bilirubin Direct 0.9 mg/dl (0-0.2); Calcium 7.5 mg/dl (8.5-10.1); Creatinine Clr Calc Pharmacy 56.8 ml/min; Est GFR (African American) 66.3; Est GFR (Non-African American) 57.2; Potassium 3.9 mmol/L (3.5-5.1); Total Protein 6.7 gm/dl (6.4-8.2)
[2020-08-13] MEDS: FLUOCINONIDE 0.05% OINT 15 GM TUBE EXT SCH ×3 (08:05→20:41)
[2020-08-13] MEDS: LOSARTAN/HCTZ 50/12.5MG TAB PO SCH (08:05)
[2020-08-13] MEDS: carvediloL 25 MG TAB PO SCH ×2 (08:05→20:41)
[2020-08-13] MEDS: amLODIPine BESYLATE 5 MG TAB PO SCH (08:05)
--- NOTE | 2020-08-13 08:08 | Hospitalist Progress Note ---
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 Recommended treatment with corticosteroids, prednisone recommended initial dose of 1.01.5 mg/kg/day for 13 weeks until hemoglobin levels greater than 10 g/dL are reached. Response occurs mainly during the second week, and if none or minimal improvement is observed in the third week, this therapy is assumed to be ineffective. After stabilization of hemoglobin, prednisone should be gradually and slowly tapered off at 1015 mg weekly to a daily dose of 2030 mg, then by 5 mg every 12 weeks until a dose of 15 mg, and subsequently by 2.5 mg every two weeks with the aim of withdrawing the drug. 08-13 will consult hematology for recommendations (2) Diarrhea: 08-08 onset of diarrhea and fevers checking stool polys, stool culture (3) ALEX (acute kidney injury): concern from hemolysis, will hydrate and follow patient is of some mild hypokalemia she will be given 1 dose of potassium 20 mEq tonight and follow her labs in the morning 2-12 Cr improving (4) HIV disease: continues on tenofov (5) Fever: maybe from hemolysis, will obtain blood and urine cultures and given persistent fever will continue Cefepime as the antibiotic, , CXR does not look specific COVID negative flu a/b negative RSV negative (6) Hypertension: continues on amlodipine and coreg, will have hydralazine prn, and hold losartan with alex patient (7) DVT prophylaxis: scd Admission and Anticipated Discharge Date Admission Date: August 12, 2020 Subjective Patient reports travelling to [facility] Jul 04-. On 08-08 she started having fevers and diarrhea, watery, 4 times per day. Denies cough, chest pain, sob. Denies dysuria, hematuria. History of malaria She is asking about typhoid fever Review of Systems Constitutional: + fever and + fatigue; no chills, no weakness, no anorexia, no weight loss and no weight gain Ear, Nose, Mouth, Throat: no nasal congestion, no sore throat and no dysphagia Respiratory: no cough and no dyspnea Cardiovascular: no chest pain, no dyspnea on exertion, no orthopnea and no palpitations Gastrointestinal: + nausea and + diarrhea/loose stools; no abdominal pain, no vomiting, no hematemesis, no dysphagia, no constipation, no blood in stools and no melena Genitourinary: no dysuria, no urinary frequency, no hematuria and no flank pain Musculoskeletal: no back pain, no joint pain, no myalgia and no muscle weakness Integumentary: no rash, no lesions, no skin ulcer, no erythema, no dry skin and no pruritus Neurologic: no falls, no localized weakness, no generalized weakness, no numbness, no paresthesia, no tremor(s) and no headache(s) Psychiatric: no depression, no suicidal ideation, no homicidal ideation and no anxiety Endocrine: no cold intolerance and no heat intolerance Hematologic / Lymphatic: no easy bleeding and no easy bruising Physical Exam Constitutional: well developed and well nourished; no acute distress Eyes: PERRL, conjunctivae normal, anicteric sclerae ENMT: Mouth: oral mucous membranes not dry Respiratory: normal respiratory effort; no respiratory distress and no labored breathing Auscultation: lungs clear to auscultation bilaterally; no crackles, no rales, no rhonchi and no wheezes Cardiovascular: Rate/Rhythm: regular rate and regular rhythm Heart Sounds: no murmur and no cardiac rub Vessels: normal peripheral pulses and radial pulses present; no JVD Extremities: no edema Gastrointestinal (Abdomen): Inspection/Auscultation: abdomen normal to inspection and normal bowel sounds; abdomen not distended Percussion/Palpation: abdomen soft; abdomen nontender, no guarding, abdomen not rigid and no hepatosplenomegaly Musculoskeletal: Head/Neck/Chest: normocephalic and head atraumatic Spine: no cervical spinal tenderness, no cervical muscular tenderness, no thoracic spinal tenderness and no lumbar spinal tenderness Skin: no rashes, warm and dry Neurologic: CN's II-XI intact bilaterally and moves all extremities Motor/Sensory: no tremor and no sensory deficit Psychiatric: Orientation: alert, oriented to person, oriented to place and oriented to time Apperance: appropriately groomed; not disheveled Affect: euthymic affect; no anxious affect and no tearful affect Genitourinary: no CVA tenderness no Chen catheter Results & Data Results & Data ([facility]) Vital Signs (Past 12 Hours) Vital Signs Temp Pulse Pulse Resp BP BP Pulse Ox 08/13/20 07:32 37.1 C 87 20 144/81 H 96 08/13/20 05:13 36.6 C 08/13/20 03:13 36.7 C 89 18 154/87 H 97 08/12/20 23:46 37.2 C 86 17 149/87 H 95 08/12/20 23:16 36.9 C 93 H 18 144/85 H 94 08/12/20 23:00 37.1 C 103 H 18 152/95 H 96 08/12/20 22:44 37 C 101 H 18 155/77 H 97 08/12/20 21:36 37.5 C 104 H 18 152/86 H 95 08/12/20 21:05 37.2 C 106 H 18 161/95 H 93 08/12/20 20:36 37.5 C 107 H 17 156/93 H 92 Laboratory Results Abnormal lab results 08/12/20 08/12/20 08/12/20 Range/Units 12:45 12:48 12:48 WBC 3.32 L (4.8-10.8) K/uL RBC 2.47 L (4.2-5.4) M/uL Hgb 6.9 L* (12.0-16.0) g/dL Hct 19.8 L* (37-47) % RDW Coeff of Raphael 15.6 H (11.5-14.5) % Plt Count 111 L (130-400) K/uL MPV (7.4-10.4) fL Reticulocyte % (Auto) (0.5-2.0) % Lymph # (Auto) 1.17 L (1.2-3.4) K/uL Reticulocyte # (0.02-0.10) 10^6/uL Immature Gran # (Auto) 0.05 H (0.00-0.02) K/uL Absolute Nucleated RBC 0.03 H (0-0) K/uL Potassium 3.3 L (3.5-5.1) mmol/L Chloride (98-107) mmol/L Creatinine 1.23 H (0.6-1.2) mg/dl BUN/Creatinine Ratio 8.7 L (10-20) Glucose (70-99) mg/dl Calcium 8.2 L (8.5-10.1) mg/dl Total Bilirubin 1.8 H (0.2-1) mg/dl Direct Bilirubin (0-0.2) mg/dl AST 103 H (15-37) U/L ALT 201 H (12-78) U/L Alkaline Phosphatase 263 H (45-117) U/L Lactate Dehydrogenase 608 H (84-246) U/L Albumin 2.5 L (3.4-5.0) gm/dl Globulin 4.2 H (2.5-4.0) gm/dl Albumin/Globulin Ratio 0.6 L (0.9-2) Urine Protein (Negative) Urine Ketones (Negative) Urine Blood (Negative) Urine Bilirubin (Negative) Urine RBC (Auto) (0-4) /hpf U Epithel Cells (Auto) (0-5) /lpf Direct Antiglob Test (Negative) HERMINIO, Polyspecific (Negative) HERMINIO C3b, C3d 5 Min (Negative) Crossmatch 08/12/20 08/12/20 08/12/20 Range/Units 12:48 13:30 16:34 WBC (4.8-10.8) K/uL RBC (4.2-5.4) M/uL Hgb (12.0-16.0) g/dL Hct (37-47) % RDW Coeff of Raphael (11.5-14.5) % Plt Count (130-400) K/uL MPV (7.4-10.4) fL Reticulocyte % (Auto) 4.9 H (0.5-2.0) % Lymph # (Auto) (1.2-3.4) K/uL Reticulocyte # 0.12 H (0.02-0.10) 10^6/uL Immature Gran # (Auto) (0.00-0.02) K/uL Absolute Nucleated RBC (0-0) K/uL Potassium (3.5-5.1) mmol/L Chloride (98-107) mmol/L Creatinine (0.6-1.2) mg/dl BUN/Creatinine Ratio (10-20) Glucose (70-99) mg/dl Calcium (8.5-10.1) mg/dl Total Bilirubin (0.2-1) mg/dl Direct Bilirubin (0-0.2) mg/dl AST (15-37) U/L ALT (12-78) U/L Alkaline Phosphatase (45-117) U/L Lactate Dehydrogenase (84-246) U/L Albumin (3.4-5.0) gm/dl Globulin (2.5-4.0) gm/dl Albumin/Globulin Ratio (0.9-2) Urine Protein 1+ H (Negative) Urine Ketones Trace H (Negative) Urine Blood 2+ H (Negative) Urine Bilirubin 1+ H (Negative) Urine RBC (Auto) 10-30 H (0-4) /hpf U Epithel Cells (Auto) >30 H (0-5) /lpf Direct Antiglob Test Positive A (Negative) HERMINIO, Polyspecific Weak Pos A (Negative) HERMINIO C3b, C3d 5 Min Weak Pos A (Negative) Crossmatch See Detail 08/13/20 08/13/20 08/13/20 Range/Units 05:55 05:55 05:55 WBC 4.36 L (4.8-10.8) K/uL RBC 3.06 L (4.2-5.4) M/uL Hgb 8.7 L (12.0-16.0) g/dL Hct 25.0 L (37-47) % RDW Coeff of Raphael 16.0 H (11.5-14.5) % Plt Count 124 L (130-400) K/uL MPV 10.5 H (7.4-10.4) fL Reticulocyte % (Auto) (0.5-2.0) % Lymph # (Auto) (1.2-3.4) K/uL Reticulocyte # (0.02-0.10) 10^6/uL Immature Gran # (Auto) (0.00-0.02) K/uL Absolute Nucleated RBC (0-0) K/uL Potassium (3.5-5.1) mmol/L Chloride 109 H (98-107) mmol/L Creatinine (0.6-1.2) mg/dl BUN/Creatinine Ratio (10-20) Glucose 119 H (70-99) mg/dl Calcium 7.5 L (8.5-10.1) mg/dl Total Bilirubin 2.0 H (0.2-1) mg/dl Direct Bilirubin 0.9 H (0-0.2) mg/dl AST 90 H (15-37) U/L ALT 161 H (12-78) U/L Alkaline Phosphatase 237 H (45-117) U/L Lactate Dehydrogenase 719 H (84-246) U/L Albumin 2.5 L (3.4-5.0) gm/dl Globulin (2.5-4.0) gm/dl Albumin/Globulin Ratio (0.9-2) Urine Protein (Negative) Urine Ketones (Negative) Urine Blood (Negative) Urine Bilirubin (Negative) Urine RBC (Auto) (0-4) /hpf U Epithel Cells (Auto) (0-5) /lpf Direct Antiglob Test (Negative) HERMINIO, Polyspecific (Negative) HERMINIO C3b, C3d 5 Min (Negative) Crossmatch Medications Administered Current Inpatient Medications Acetaminophen (Acetaminophen 325 Mg Tab) 650 mg PO Q4H PRN PRN Reason: pain/fever Stop: 09/11/20 18:57 Al Hydrox/Mg Hydrox/Simethicone (Aluminum/Magnesium Susp 30 Ml Udc) 30 ml PO Q6H PRN PRN Reason: Dyspepsia Stop: 09/11/20 18:57 Amlodipine Besylate (Amlodipine Besylate 5 Mg Tab) 10 mg PO DAILY [facility] Stop: 09/12/20 08:59 Last Admin: 08/13/20 08:05 Dose: 10 mg Documented by: Carvedilol (Carvedilol 25 Mg Tab) 25 mg PO BID [facility] Stop: 09/11/20 20:59 Last Admin: 08/13/20 08:05 Dose: 25 mg Documented by: Clonidine HCl (Clonidine Hcl 0.1 Mg Tab) 0.1 mg PO Q8 PRN PRN Reason: Blood Pressure - High Stop: 09/11/20 18:57 Efavirenz/Emtricitabine/Tenofovir (Efavirenz/Emtricit/Tenofovr Df) 1 ea PO HS TAE; Protocol Stop: 09/11/20 20:59 Last Admin: 08/12/20 21:18 Dose: 1 ea Documented by: Famotidine (Famotidine 40 Mg Tablet) 40 mg PO Q24H TAE Stop: 09/11/20 20:59 Last Admin: 08/12/20 21:19 Dose: 40 mg Documented by: Fluocinonide (Fluocinonide 0.05% Oint 15 Gm Tube) 1 appln EXT TID [facility] Stop: 09/11/20 20:59 Last Admin: 08/13/20 08:05 Dose: Not Given Documented by: HCTZ/Losartan Potassium (Losartan/Hctz 50/12.5mg Tab) 1 tab PO DAILY [facility] Stop: 09/12/20 08:59 Last Admin: 08/13/20 08:05 Dose: 1 tab Documented by: Hydralazine HCl (Hydralazine Hcl 20 Mg/Ml Vial) 10 mg IV Q8 PRN PRN Reason: Blood Pressure - High Stop: 09/11/20 20:25 Sodium Chloride (Nss) 250 mls @ 15 mls/hr IV .[id number] PRN PRN Reason: For Transfusion Stop: 09/11/20 18:57 Cefepime HCl 2,000 mg/ Syringe 20 mls @ 5 mls/min IV Q12H [facility]; Protocol Stop: 08/23/20 00:59 Last Admin: 08/13/20 01:12 Dose: 5 mls/min Documented by: Lorazepam (Lorazepam 0.5 Mg Tab) 0.5 mg PO Q6H PRN PRN Reason: Anxiety Stop: 09/11/20 18:57 Ondansetron HCl (Ondansetron Inj 2 Mg/Ml 2 Ml Vial) 4 mg IV Q6H PRN PRN Reason: Nausea Stop: 09/11/20 18:57 Oxycodone HCl (Oxycodone Hcl Ir 5 Mg Tab (Immediate Release)) 5 mg PO Q6H PRN PRN Reason: Moderate Pain Stop: 08/26/20 20:25 Prednisone (Prednisone 50 Mg Tab) 100 mg PO DAILY@1700 [facility] Stop: 09/11/20 17:14 Last Admin: 08/12/20 17:22 Dose: 100 mg Documented by: Prednisone (Prednisone 20 Mg Tab) 20 mg PO DAILY@1700 TAE Stop: 09/11/20 17:14 Last Admin: 08/12/20 17:22 Dose: 20 mg Documented by: PG Care Time/CCT Total # of Minutes Spent Total Time Spent with Patient: Total time spent is greater than 50% in coordination of care (as documented) at patient's floor/unit and/or counseling patient: Coding Level of Care Code 90608 Subseq Hosp Care Lvl 2 Diagnoses Hemolytic anemia D59.2 Hemolytic anemia type: acquired, nonautoimmune, drug-induced Diarrhea R19.7 Diarrhea type: unspecified type ALEX (acute kidney injury) N17.9 HIV disease B20 Fever R50.81 Fever type: due to other condition Hypertension I10 DVT prophylaxis Z29.9 (1) Hemolytic anemia Hemolytic anemia type: acquired, nonautoimmune, drug-induced Qualified Code(s): D59.2 - Drug-induced nonautoimmune hemolytic anemia (2) Fever Fever type: due to other condition Qualified Code(s): R50.81 - Fever presenting with conditions classified elsewhere (3) Diarrhea Diarrhea type: unspecified type Qualified Code(s): R19.7 - Diarrhea, unspecified
[2020-08-13] MEDS ORDERED: [UNRECOGNIZED DRUG - OTHER] PO SCH (09:00)
[2020-08-13] MEDS ORDERED: Nursing to Pharmacy Communication SCH (11:00)
[2020-08-13] MEDS ORDERED: predniSONE 50 MG TAB PO SCH (12:00)
[2020-08-13] MEDS ORDERED: predniSONE 20 MG TAB PO SCH (12:00)
[2020-08-13] MEDS ORDERED: OPTIRAY 320 100ml IV ONE (15:41)
--- NOTE | 2020-08-13 15:55 | Consultation ---
Date of Consultation August 13, 2020 Assessment & Plan (1) Hemolytic anemia: 49 y/o female with hx of malaria, recently treated with Artesunate who presents with hemolytic anemia - most likely drug induced AIHA [see foot note] - recommend blood transfusion as needed to keep Hgb >8 g/dL or symptomatic anemia - direct Eduin is weakly positive for C3 but negative for IgG, thus unlikely to be a warm AIHA - recommend to continue monitoring without corticosteroids - monitor daily CBC, retic count, bili, LDH - daily folic acid (1 mg) supplementation - spoke to Dr. Alka Moise - thank you for the courtesy of this consultation. Feel free to contact if any questions [FOOT NOTE] Delayed onset of anemia following treatment of severe malaria with artesunate has been described [26-32]. In one review, anemia occurred 8 to 32 days after completion of artesunate therapy; the mean hemoglobin servando was 6.2 g/dL, and transfusion was required in some cases [33]. The anemia improved within four to eight weeks following completion of artesunate therapy. The mechanism of delayed-onset anemia following administration of artesunate is not fully understood but is associated with increased levels of ring erythrocyte surface antigens (measured by flow cytometry) [19] or by plasma P. falciparum histidine-rich protein-2 (PfHRP2) concentrations (measured by dipstick shortly after parasite clearance) [34]. Artesunate may kill malaria parasites without destroying the red blood cell (RBC), which makes the infected RBCs more deformable than other cells, thereby increasing the apparent number of surviving RBCs following parasitemia relative to the number of RBCs in patients treated with other antimalarial agents [19,35,36]. However, the deformable RBCs have a shorter lifespan than nonparasitized RBCs, which may account for delayed-onset anemia following artesunate treatment. Further data are needed to understand if and how artesunate may affect risk for delayed-onset anemia; in general, patients with malaria should have follow-up surveillance hemoglobin concentration evaluated four weeks following completion of treatment for severe malaria. (@[facility], TOPIC 5667, Version 71.0) Present on Admission?: Yes (2) Thrombocytopenia: - most likely secondary to Malaria - it's improving - expectant management Present on Admission?: Yes History of Present Illness Reason for Consultation: Hemolytic anemia Attending Physician: Alka Antony MD History of Present Illness 49 y/o female who presents to the ED with arthralgias myalgias and fevers. Patient was recently treated at [facility] with Artesunate for malaria. Patient was hospitalized from 08/04/20 to 08/09/20. Apparently patient got malaria while she was traveling to [facility] in July 2020. She presented to our institution hypertensive and tachycardic with a temperature of 99.7 (Covid negative). She was anemic with hemoglobin 6.9, thrombocytopenic with a platelet count of 111 leukopenic with white count of 3.32. Patient is HIV positive and takes retroviral medications. Laboratory indicated evidence of hemolytic anemia and patient was started on prednisone and was transfused 2 units or prbc. Hematology was consulted for evaluation of hemolytic anemia. Patient was seen and examined at bedside. She reports abdominal discomfort, and diarrhea. She has no fever or chills. Otherwise she feels better after blood transfusion yesterday. Lab data and imaging studies were reviewed. Allergies Allergy/AdvReac Type Severity Reaction Status Date / Time Sulfa (Sulfonamide Allergy SWELLING Verified 08/12/20 13:27 Antibiotics) OF FACE Home Medications Medication Instructions Recorded Confirmed Type fluocinonide 0.05 % topical 1 appln TOPICAL TID #1 gm 02/25/19 08/12/20 History ointment amlodipine 10 mg tablet 10 mg PO DAILY #90 tab 03/15/20 08/12/20 Rx carvedilol 25 mg tablet 25 mg PO BID #180 tab 03/15/20 08/12/20 Rx losartan 100 1 tab PO DAILY #90 tab 03/15/20 08/12/20 Rx mg-hydrochlorothiazide 25 mg tablet [id number] 1 tab PO DAILY 08/04/20 08/12/20 History Patient History Medical History Herpes zoster HIV disease Hypertension Surgical History H/O tooth extraction Family History Mother Diabetes Hypertension Father , 60s No problems noted. Brother Hypertension Brother No problems noted. Sister Hypertension Sister , 45 No problems noted. Son Meningitis Son No problems noted. Son No problems noted. Denies family history of Ovarian cancer Prostate cancer Myocardial infarction Breast cancer Colorectal cancer Social History Smoking Status: Never smoker Hx Alcohol Use: Yes Alcohol type: beer Alcohol Intake Frequency: 2-3 x/Week Hx Substance Use: No Preferred Language: Greek Communication Ability: Effective Student Records Specialist Required: No Beliefs That Will Affect Care: Episcopal Episcopal Beliefs: Caodaism marital status: Single Current Living Situation: Family Current Living Situation Comment: lives with son current occupational status: employed current occupation: [employer] Other Information That Helps Us Care for You: No Feels Safe at Home: Yes Safety Concerns: Feels Safe At This Time Childhood Exposure to Second-Hand Smoke: No Dental Care, Regularly: Yes Physical Activity Frequency: Does not Exercise Seatbelt Use: always Sunscreen Use: Yes Assistive Devices: None Review of Systems Review of Systems: Constitutional: Negative for weight loss, night sweats, or fever Eyes: Negative for event change of vision ENT: Negative for epistaxis, nasal discharge, sore throat, or deafness Cardiovascular: Negative for anginal type chest pain, palpitations, dizziness, diaphoresis Respiratory: Negative for new shortness of breath, hemoptysis, or purulent cough Gastrointestinal: Negative for hematemesis, melena, nausea, vomiting, or dyspepsia. ABDOMINAL DISCOMFORT, DIARRHEA Integumentary (skin): Negative for rash or jaundice discoloration Genitourinary: Negative for urinary frequency, hematuria, or dysuria Neurological: Negative for weakness, seizure activity, headache, or dizziness Lymphatic/Hematologic: Negative for petechiae, bleeding or new adenopathy Musculoskeletal: Negative for new joint or back pain Allergic/Immunologic: Negative for unusual rash or pruritus Physical Exam Physical Exam: Constitutional: Vitals are stable Eyes: Eyes are ZOHAIB EOMI without conjunctival erythema. MILD JAUNDICE ENT: External examination was negative for masses. Neck: Negative for masses or palpable thyromegaly. Respiratory: Lung sounds were generally clear bilaterally. Cardiovascular: Heart was RRR without significant murmur, gallops or rubs. Gastrointestinal: The abdomen was soft with normal bowel sounds. Lymphatic system: There was no palpable peripheral lymphadenopathy. Musculoskeletal System: The musculoskeletal system seemed concordant with age. Skin: The skin was negative for jaundice. Neurologic Exam: The exam was negative for any focal findings. Extremities: Negative for edema or erythema Results & Data ([facility]) Vital Signs (Past 12 Hours) Vital Signs Temp Pulse Pulse Resp BP Pulse Ox 08/13/20 12:30 36.4 C L 86 20 159/91 H 98 08/13/20 07:32 37.1 C 87 20 144/81 H 96 08/13/20 05:13 36.6 C Laboratory Results Abnormal lab results 08/12/20 08/12/20 08/12/20 Range/Units 12:45 12:48 12:48 WBC 3.32 L (4.8-10.8) K/uL RBC 2.47 L (4.2-5.4) M/uL Hgb 6.9 L* (12.0-16.0) g/dL Hct 19.8 L* (37-47) % RDW Coeff of Raphael 15.6 H (11.5-14.5) % Plt Count 111 L (130-400) K/uL MPV (7.4-10.4) fL Reticulocyte % (Auto) (0.5-2.0) % Lymph # (Auto) 1.17 L (1.2-3.4) K/uL Reticulocyte # (0.02-0.10) 10^6/uL Immature Gran # (Auto) 0.05 H (0.00-0.02) K/uL Absolute Nucleated RBC 0.03 H (0-0) K/uL Potassium 3.3 L (3.5-5.1) mmol/L Chloride (98-107) mmol/L Creatinine 1.23 H (0.6-1.2) mg/dl BUN/Creatinine Ratio 8.7 L (10-20) Glucose (70-99) mg/dl Calcium 8.2 L (8.5-10.1) mg/dl Total Bilirubin 1.8 H (0.2-1) mg/dl Direct Bilirubin (0-0.2) mg/dl AST 103 H (15-37) U/L ALT 201 H (12-78) U/L Alkaline Phosphatase 263 H (45-117) U/L Lactate Dehydrogenase 608 H (84-246) U/L Albumin 2.5 L (3.4-5.0) gm/dl Globulin 4.2 H (2.5-4.0) gm/dl Albumin/Globulin Ratio 0.6 L (0.9-2) Urine Protein (Negative) Urine Ketones (Negative) Urine Blood (Negative) Urine Bilirubin (Negative) Urine RBC (Auto) (0-4) /hpf U Epithel Cells (Auto) (0-5) /lpf Direct Antiglob Test (Negative) HERMINIO, Polyspecific (Negative) HERMINIO C3b, C3d 5 Min (Negative) Crossmatch 08/12/20 08/12/20 08/12/20 Range/Units 12:48 13:30 16:34 WBC (4.8-10.8) K/uL RBC (4.2-5.4) M/uL Hgb (12.0-16.0) g/dL Hct (37-47) % RDW Coeff of Raphael (11.5-14.5) % Plt Count (130-400) K/uL MPV (7.4-10.4) fL Reticulocyte % (Auto) 4.9 H (0.5-2.0) % Lymph # (Auto) (1.2-3.4) K/uL Reticulocyte # 0.12 H (0.02-0.10) 10^6/uL Immature Gran # (Auto) (0.00-0.02) K/uL Absolute Nucleated RBC (0-0) K/uL Potassium (3.5-5.1) mmol/L Chloride (98-107) mmol/L Creatinine (0.6-1.2) mg/dl BUN/Creatinine Ratio (10-20) Glucose (70-99) mg/dl Calcium (8.5-10.1) mg/dl Total Bilirubin (0.2-1) mg/dl Direct Bilirubin (0-0.2) mg/dl AST (15-37) U/L ALT (12-78) U/L Alkaline Phosphatase (45-117) U/L Lactate Dehydrogenase (84-246) U/L Albumin (3.4-5.0) gm/dl Globulin (2.5-4.0) gm/dl Albumin/Globulin Ratio (0.9-2) Urine Protein 1+ H (Negative) Urine Ketones Trace H (Negative) Urine Blood 2+ H (Negative) Urine Bilirubin 1+ H (Negative) Urine RBC (Auto) 10-30 H (0-4) /hpf U Epithel Cells (Auto) >30 H (0-5) /lpf Direct Antiglob Test Positive A (Negative) HERMINIO, Polyspecific Weak Pos A (Negative) HERMINIO C3b, C3d 5 Min Weak Pos A (Negative) Crossmatch See Detail 08/13/20 08/13/20 08/13/20 Range/Units 05:55 05:55 05:55 WBC 4.36 L (4.8-10.8) K/uL RBC 3.06 L (4.2-5.4) M/uL Hgb 8.7 L (12.0-16.0) g/dL Hct 25.0 L (37-47) % RDW Coeff of Raphael 16.0 H (11.5-14.5) % Plt Count 124 L (130-400) K/uL MPV 10.5 H (7.4-10.4) fL Reticulocyte % (Auto) (0.5-2.0) % Lymph # (Auto) (1.2-3.4) K/uL Reticulocyte # (0.02-0.10) 10^6/uL Immature Gran # (Auto) (0.00-0.02) K/uL Absolute Nucleated RBC (0-0) K/uL Potassium (3.5-5.1) mmol/L Chloride 109 H (98-107) mmol/L Creatinine (0.6-1.2) mg/dl BUN/Creatinine Ratio (10-20) Glucose 119 H (70-99) mg/dl Calcium 7.5 L (8.5-10.1) mg/dl Total Bilirubin 2.0 H (0.2-1) mg/dl Direct Bilirubin 0.9 H (0-0.2) mg/dl AST 90 H (15-37) U/L ALT 161 H (12-78) U/L Alkaline Phosphatase 237 H (45-117) U/L Lactate Dehydrogenase 719 H (84-246) U/L Albumin 2.5 L (3.4-5.0) gm/dl Globulin (2.5-4.0) gm/dl Albumin/Globulin Ratio (0.9-2) Urine Protein (Negative) Urine Ketones (Negative) Urine Blood (Negative) Urine Bilirubin (Negative) Urine RBC (Auto) (0-4) /hpf U Epithel Cells (Auto) (0-5) /lpf Direct Antiglob Test (Negative) HERMINIO, Polyspecific (Negative) HERMINIO C3b, C3d 5 Min (Negative) Crossmatch Diagnostic Findings CXR 08/04/2020: 1. Mild cardiomegaly with mild congestive change. 2. Hazy appearance to the lung bases could be due to atelectasis or a viral pneumonia. (1) Hemolytic anemia Hemolytic anemia type: acquired, nonautoimmune, drug-induced Qualified Code(s): D59.2 - Drug-induced nonautoimmune hemolytic anemia
--- NOTE | 2020-08-13 15:59 | CT Scan Report ---
CT abd pelvis IV con only CLINICAL HISTORY: Abdominal pain and bloating COMPARISON STUDY: None. TECHNIQUE: Patient was scanned in a dynamic helical fashion during intravenous administration of 93 c c of Optiray 320 A dose lowering technique was utilized adhering to the principles of ALARA. CT DOSE: 821.67 mGycm FINDINGS: Lower chest: The heart appears enlarged. There is a small pericardial effusion. There are small bilat eral pleural effusions. There are basilar parenchymal opacities, likely atelectatic. Liver: The contrast-enhanced liver is normal in size, contour, and attenuation. There is no intrahepa tic biliary ductal dilatation. The hepatic veins and portal veins are patent. Gallbladder: Unremarkable. Spleen: Mildly enlarged measuring 12.6 cm Pancreas: Unremarkable. Adrenal glands: Unremarkable. Kidneys: There is mild bilateral nephromegaly. There is slight heterogeneous renal enhancement. No so lid renal masses are visualized. There is no hydronephrosis. Correlation with urinalysis is recommend ed. A nephritis cannot be excluded. Bowel: There are no transition zones indicate bowel obstruction. The appendix appears normal. There i s no acute diverticulitis. Peritoneum: There is no free air. There is trace pelvic fluid.. There is a fat-containing umbilical h ernia Vasculature: The abdominal aorta is normal in course and caliber. Adenopathy: None. Pelvic viscera: The uterus appears enlarged. There are multiple hyperdense uterine masses, likely rep resenting multiple fibroids Skeletal structures: No destructive osseous lesions are seen. IMPRESSION: 1. No evidence of bowel obstruction. No evidence of free air 2. Normal appendix. No evidence of acute diverticulitis 3. Enlarged fibroid uterus 4. Mild splenomegaly 5. Mild nephromegaly. No solid renal masses identified 6. Trace ascites 7. Small bilateral pleural effusions with basilar atelectasis 8. Small pericardial effusion ACT 112: Negative or not required by law. Electronically signed by: Denny Peraza M.D. 08/13/2020 3:57 PM
[2020-08-13] MEDS: DOXYCYCLINE HYCLATE 100 MG CAP PO SCH ×2 (16:17→21:02)
--- NOTE | 2020-08-13 16:20 | Communication Note ---
Date of Service: August 13, [address] Butler of infectious disease He recommends rocephin and doxy to cover for typhoid fever Start malarone 4tabs for 3 days to cover for malaria stated that her malaria was falciparum watch stool cultures, blood cultures, urine culture Reviewed records from [facility] CD4 count 526 (10-25-20) received Artesunate treatment for malaria also received malarone 2-4 through 2-7 received rocephin for pansusceptible e. coli UTI patient continued to have fevers despite these treatments
[2020-08-13] MEDS: PROGUANIL HCL PO SCH ×2 (17:29→17:52)
[2020-08-13] MEDS: ATOVAQUONE PO SCH ×2 (17:29→17:52)
[2020-08-13] MEDS: cefTRIAXone SODIUM 2,000 MG in DEXTROSE 5% 50 ML IV SCH (18:22)
[2020-08-13] MEDS: FAMOTIDINE 40 MG TABLET PO SCH (20:42)
[2020-08-13] MEDS: [UNRECOGNIZED DRUG - OTHER] PO SCH (20:43)
[2020-08-14 06:04] LABS: Hematocrit (blood only) 24.9 % (37-47); Hemoglobin 8.5 g/dL (12.0-16.0); Mean Corpuscular Hemoglobin 27.8 pg (25-34); Mean Corpuscular Hgb Conc 34.1 g/dL (32-36); Mean Corpuscular Volume 81.4 fL (80-100); Mean Platelet Volume 10.1 fL (7.4-10.4); Platelet Count 155 K/uL (130-400); RDW Coefficient of Variation 16.3 % (11.5-14.5); RDW Standard Deviation 46.8 fL (36.4-46.3); Red Blood Count 3.06 M/uL (4.2-5.4)
[2020-08-14 06:44] LABS: BUN Creatinine Ratio 16.8 (10-20); Calcium 7.4 mg/dl (8.5-10.1); Est GFR (African American) 70.9; Est GFR (Non-African American) 61.2; Magnesium 1.9 mg/dl (1.8-2.4); Phosphorus 2.8 mg/dl (2.5-4.9); Potassium 3.6 mmol/L (3.5-5.1)
[2020-08-14] MEDS: FLUOCINONIDE 0.05% OINT 15 GM TUBE EXT SCH ×3 (09:11→20:17)
[2020-08-14] MEDS: DOXYCYCLINE HYCLATE 100 MG CAP PO SCH ×2 (09:12→20:16)
[2020-08-14] MEDS: FOLIC ACID 1 MG TAB PO SCH (09:12)
[2020-08-14] MEDS: carvediloL 25 MG TAB PO SCH ×2 (09:12→20:16)
[2020-08-14] MEDS: LOSARTAN/HCTZ 50/12.5MG TAB PO SCH (09:12)
[2020-08-14] MEDS: amLODIPine BESYLATE 5 MG TAB PO SCH (09:13)
[2020-08-14] MEDS: ATOVAQUONE PO SCH (16:42)
[2020-08-14] MEDS: cefTRIAXone SODIUM 2,000 MG in DEXTROSE 5% 50 ML IV SCH (16:42)
[2020-08-14] MEDS: PROGUANIL HCL PO SCH (16:42)
--- NOTE | 2020-08-14 18:49 | XRay Report ---
TWO VIEW CHEST CLINICAL HISTORY: Rales on physical examination. FINDINGS: PA and lateral chest radiographs are compared to study dated 08/12/2020. The heart is mildly enlarged. There is prominence of the pulmonary vasculature. Foci of linear atelectasis are present i n the lower lungs, left greater than right. No lobar consolidation or pleural effusion is identified. There is no pneumothorax. The bony thorax appears intact. IMPRESSION: 1. Cardiomegaly with prominence of the pulmonary vasculature. Correlate clinically for evidence of mi ld congestive failure. 2. Bibasilar atelectasis with no airspace consolidation typical for pneumonia or pleural effusion. ACT 112: Negative or not required by law. Electronically signed by: Brian Webster M.D. 08/14/2020 6:48 PM
[2020-08-14] MEDS ORDERED: FUROSEMIDE 20 MG TAB PO ONE (19:32)
[2020-08-14] MEDS ORDERED: POTASSIUM CHLORIDE CRTAB 20 MEQ TABCR PO STA (19:32)
[2020-08-14] MEDS: FAMOTIDINE 40 MG TABLET PO SCH (20:16)
[2020-08-14] MEDS: [UNRECOGNIZED DRUG - OTHER] PO SCH (20:17)
--- NOTE | 2020-08-14 22:30 | Hospitalist Progress Note ---
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 also received malarone from 08/05 to 08/08. Dr Moise spoke with [facility] yesterday who advised atovaquone/proguanil x 3 additional days. thus, day #2 today. patient's malaria course complicated by hemolytic anemia - likely has side effect from artusanate. appreciate heme/onc consult & recs. they do not advise steroids at this time. daily CBC, bili, LDH. H/H stable last 24 hours. platelets recovered. wbc count normalizing. last 2 blood smears for malaria negative at [facility]. 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 Some of the hemolysis could have been from the severe malaria itself. Lowest Hb 6.9, s/p 2 units PRBCs for such. Seen by heme/onc yesterday - they advised daily CBC, LDH, etc. Defer on steroids as advised by heme/onc. CBC much better today. Will repeat labs again in am. Appreciate heme/onc consultation. (3) Diarrhea: Certainly malaria could have caused. But [facility] concerned about salmonella typhi infection. Thus, started on rocephin yesterday for this possibility. Stool culture at [facility] thus far negative for such. Will f/u with [facility] to see if they have lab-confirmation of typhoid fever. (4) Typhoid fever: see above in "diarrhea" (5) ALEX (acute kidney injury): peak Cr 1.4 now 1 bmp in am resolved (6) HIV disease: continues on tenofov most recent CD4 count 526 (7) Acute hepatitis: likely 2nd to malaria slowly improving LFTs in am to ensure ongoing recovery recent INR 1.1 (8) UTI (urinary tract infection): e.coli Rx for such while hospitalized in [place] (9) Hypertension: continues on amlodipine and coreg along with HCTZ/losartan BPs controlled (10) Thrombocytopenia: resolved 2nd to severe malaria (11) Pancytopenia: resolved 2nd severe malaria (12) Abnormal lung sounds: crackles b/l on exam today cxr obtained - interstitial pattern seen from recent malaria infection? pulmonary edema from recent PRBCs?? other? lasix 20mg po x 1 in event it is pulm edema (13) DVT prophylaxis: defer on chemical means given recent severe thrombocytopenia ambulate progressing nicely Admission and Anticipated Discharge Date Admission Date: August 12, 2020 Subjective patient overall feeling better. only complaints are that of stomach upset and diarrhea. no blood in stool. 2 loose stools only since the am. appetite better. no fevers/chills/sweats/nausea/vomiting. denies orthopnea/dyspnea. Review of Systems Constitutional: + fatigue; no fever, no chills, no body aches and no anorexia Respiratory: no cough Cardiovascular: no chest pain, no orthopnea and no edema Gastrointestinal: + abdominal pain and + diarrhea/loose stools; no blood in stools Musculoskeletal: no joint pain and no myalgia Integumentary: no rash Physical Exam Constitutional: no acute distress and no altered mental status Eyes: + scleral abnormality (Mild icterus) ENMT: external ear and nose normal, oropharynx normal Respiratory: Auscultation: + crackles (B/l bases) Cardiovascular: Rate/Rhythm: regular rate and regular rhythm Heart Sounds: normal S1 and normal S2; no murmur Vessels: posterior tibial pulses present and dorsalis pedis pulses present; no JVD Extremities: no edema Gastrointestinal (Abdomen): Inspection/Auscultation: normal bowel sounds Percussion/Palpation: abdomen soft and + hepatomegaly; abdomen nontender Musculoskeletal: no cyanosis or clubbing, extremities motor strength 5/5 Skin: no rashes, warm and dry Psychiatric: A+Ox3, euthymic affect Results & Data Results & Data ([facility]) Vital Signs (Past 12 Hours) Vital Signs Temp Pulse Resp BP Pulse Ox 08/14/20 20:15 90 159/96 H 08/14/20 14:51 36.8 C 81 20 153/90 H 97 Laboratory Results Laboratory Results - last 24 hr 08/12/20 08/14/20 08/14/20 16:34 05:40 05:40 WBC 4.00 L RBC 3.06 L Hgb 8.5 L Hct 24.9 L MCV 81.4 MCH 27.8 MCHC 34.1 RDW Std Deviation 46.8 H RDW Coeff of Raphael 16.3 H Plt Count 155 MPV 10.1 Sodium 139 Potassium 3.6 Chloride 110 H Carbon Dioxide 24 Anion Gap 5.0 BUN 18 Creatinine 1.06 Est Cr Clr Drug Dosing 60.0 Est GFR ( Amer) 70.9 Est GFR (Non-Af Amer) 61.2 BUN/Creatinine Ratio 16.8 Glucose 87 Calcium 7.4 L Phosphorus 2.8 Magnesium 1.9 Crossmatch See Detail PG Care Time/CCT Total # of Minutes Spent Total Time Spent with Patient: Total time spent is greater than 50% in coordination of care (as documented) at patient's floor/unit and/or counseling patient: Coding Level of Care Code 27845 Subseq Hosp Care Lvl 3 Diagnoses Malaria B54 Hemolytic anemia D59.2 Hemolytic anemia type: acquired, nonautoimmune, drug-induced Diarrhea R19.7 Diarrhea type: unspecified type Typhoid fever A01.00 ALEX (acute kidney injury) N17.9 HIV disease B20 Acute hepatitis B17.9 UTI (urinary tract infection) N39.0 Hypertension I10 Thrombocytopenia D69.6 Pancytopenia D61.818 Abnormal lung sounds R09.89 DVT prophylaxis Z29.9 (1) Hemolytic anemia Hemolytic anemia type: acquired, nonautoimmune, drug-induced Qualified Code(s): D59.2 - Drug-induced nonautoimmune hemolytic anemia (2) Diarrhea Diarrhea type: unspecified type Qualified Code(s): R19.7 - Diarrhea, unspecified
[2020-08-15 06:55] LABS: Hematocrit (blood only) 24.7 % (37-47); Hemoglobin 8.4 g/dL (12.0-16.0); Mean Corpuscular Hemoglobin 28.5 pg (25-34); Mean Corpuscular Volume 83.7 fL (80-100); Mean Platelet Volume 9.9 fL (7.4-10.4); Nucleated RBC # (auto) 0.02 K/uL (0-0); Nucleated RBC % (auto) 0.8 %; Platelet Count 171 K/uL (130-400); RDW Coefficient of Variation 16.2 % (11.5-14.5); RDW Standard Deviation 47.5 fL (36.4-46.3); Red Blood Count 2.95 M/uL (4.2-5.4); Reticulocyte % 4.9 % (0.5-2.0); Reticulocytes # 0.14 10^6/uL (0.02-0.10); White Blood Count 2.66 K/uL (4.8-10.8)
[2020-08-15 07:47] LABS: Alanine Aminotransferase 122 U/L (12-78); Albumin Level 2.5 gm/dl (3.4-5.0); Alkaline Phosphatase 199 U/L (45-117); BUN Creatinine Ratio 18.2 (10-20); Bilirubin,Total 1.4 mg/dl (0.2-1); Blood Urea Nitrogen 20 mg/dl (7-18); Calcium 7.7 mg/dl (8.5-10.1); Carbon Dioxide 23 mmol/L (21-32); Chloride 111 mmol/L (98-107); Creatinine Clr Calc Pharmacy 57.3 ml/min; Est GFR (African American) 67.1; Est GFR (Non-African American) 57.9; Glucose 80 mg/dl (70-99); Sodium 142 mmol/L (136-145); Total Protein 6.7 gm/dl (6.4-8.2)
[2020-08-15 08:15] LABS: Potassium 3.5 mmol/L (3.5-5.1)
[2020-08-15 08:20] LABS: Bilirubin Direct 0.8 mg/dl (0-0.2)
[2020-08-15] MEDS: DOXYCYCLINE HYCLATE 100 MG CAP PO SCH (08:45)
[2020-08-15] MEDS: carvediloL 25 MG TAB PO SCH (08:45)
[2020-08-15] MEDS: LOSARTAN/HCTZ 50/12.5MG TAB PO SCH (08:45)
[2020-08-15] MEDS: amLODIPine BESYLATE 5 MG TAB PO SCH (08:46)
[2020-08-15] MEDS: FOLIC ACID 1 MG TAB PO SCH (08:46)
[2020-08-15] MEDS: FLUOCINONIDE 0.05% OINT 15 GM TUBE EXT SCH ×2 (08:46→13:49)
[2020-08-15] MEDS: PROGUANIL HCL PO SCH (12:09)
[2020-08-15] MEDS: ATOVAQUONE PO SCH (12:09)
[2020-08-15] MEDS: cefTRIAXone SODIUM 2,000 MG in DEXTROSE 5% 50 ML IV SCH (12:09)
--- NOTE | 2020-08-15 12:31 | Discharge Summary ---
Date of Service date of admission - August 12, 2020 date of discharge - August 15, 2020 Admission HPI Per Admitting Provider 49yo female presents to the emergency department with arthralgias myalgias and fevers. Patient was recently treated at [facility] with Artesuna te for malaria. She presents to our institution tonight hypertensive and tachycardic with a temperature of 99.7 (Covid negative). She is anemic with hemoglobin 6.9, thrombocytopenic with a platelet count of 111, and leukopenic with white count of 3.32. Patient is HIV positive and takes antiviral medications. However there is concern with elevation of LDH, elevation of her bilirubin, and some microscopic hematuria that patient is hemolyzing. Eduin and haptoglobin tests were dispatched in the emergency department. Again the concern is that she may have hemolytic anemia possibly due to recent Artesunate therapy. She additionally has acute kidney injury. A peripheral smear was performed on admission and did not show any inclusion bodies to be consistent with parasite blood infection. Principal Diagnosis hemolytic anemia likely 2nd to recent artesunate therapy Discharge Exam Constitutional no acute distress and no altered mental status Eyes + scleral abnormality (Mild icterus) ENMT external ear and nose normal, oropharynx normal Respiratory Auscultation: + crackles (B/l bases - scant - improved from prior exams) Cardiovascular Rate/Rhythm: regular rate and regular rhythm Heart Sounds: normal S1 and normal S2; no murmur Vessels: posterior tibial pulses present and dorsalis pedis pulses present; no JVD Extremities: no edema Gastrointestinal (Abdomen) Inspection/Auscultation: normal bowel sounds Percussion/Palpation: abdomen soft and + hepatomegaly; abdomen nontender Skin no rashes, warm and dry Psychiatric A+Ox3, euthymic affect Discharge Data Allergies Allergy/AdvReac Type Severity Reaction Status Date / Time Sulfa (Sulfonamide Allergy SWELLING Verified 08/12/20 13:27 Antibiotics) OF FACE Consultations Hematology - Jeffery Meraz MD Procedures Performed PRBCs x 2 units Ordered Studies 08/13/20 15:00 CT abd pelvis IV con only Routine IMPRESSION: 1. No evidence of bowel obstruction. No evidence of free air 2. Normal appendix. No evidence of acute diverticulitis 3. Enlarged fibroid uterus 4. Mild splenomegaly 5. Mild nephromegaly. No solid renal masses identified 6. Trace ascites 7. Small bilateral pleural effusions with basilar atelectasis 8. 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 Had severe disease with >10% parasitemia, multiorgan involvement (renal, liver), etc. Also received malarone from 08/05 to 08/08 based on records. During this hospital stay the care team contacted [facility] in [place] who advised atovaquone/proguanil x 3 additional days. She completed this during her hospitalization at [facility]. Patient's malaria course was complicated by hemolytic anemia - likely as a side effect from recent Artesunate therapy which she received in [place]. Heme/onc was consulted here who did not advise steroid treatment. Instead, supportive care, serial labs, and transfusion were advised. Of note - 2 blood smears for malaria were negative during this hospital stay. Following 2 units of PRBCs her H/H remained stable for 48 hours prior to discharge. Platelets recovered/normalized. 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 Some of the hemolysis could have been from the severe malaria itself as well. Lowest Hb was 6.9, s/p 2 units PRBCs for such. Seen by heme/onc - they advised daily CBC, LDH, bilirubin, etc. Systemic steroids were not advised by heme/onc. Following the 2 units PRBCs her hemoglobin remained 8.4 to 8.7 in the 48 hours prior to discharge. Bilirubin trended downward. She will need [facility] days of discharge to ensure stability. Unfortunately the effects of Artesunate can last for several weeks even if the malaria itself has resolved clinically. At discharge she will take folic acid 1mg daily unless otherwise directed. (3) Diarrhea: This was one of the patient's most prominent symptoms while hospitalized here. Certainly malaria could have caused this. Stool culture was fully negative during her stay. Records were obtained from her recent stay at [facility] and no stool study showed pathogens. However, [facility] was still concerned that she could have salmonella typhi co-infection in the setting of malaria. Thus, she received rocephin empirically for such. At discharge she will complete 3 more days of zithromax 500mg daily in the event there is salmonella infection. (4) Typhoid fever: see above in "diarrhea" (5) ALEX (acute kidney injury): peak Cr 1.4 now 1 2nd to recent malaria infection (6) HIV disease: continues on tenofov most recent CD4 count 526 no evidence of any opportunistic infection at this time follows with Dr Jeremiah Hill, [facility] ([place] office) (7) Acute hepatitis: likely 2nd to malaria slowly improving LFTs were observed during the visit INR was stable at 1.1 she was advised to avoid tylenol and alcohol post-discharge will need f/u LFTs during post-hospital discharge appointment to ensure stability (8) UTI (urinary tract infection): e.coli Rx for such while hospitalized in [place] (9) Hypertension: continues on amlodipine and coreg along with HCTZ/losartan BPs controlled during this stay (10) Thrombocytopenia: resolved 2nd to severe malaria (11) Pancytopenia: resolved 2nd severe malaria (12) Abnormal lung sounds: crackles b/l bases were heard during the hospitalization. cxr obtained - interstitial pattern seen. from recent malaria infection? pulmonary edema from recent PRBCs?? other? lasix was given in the event it was pulmonary edema from recent PRBC transfusion. at discharge her O2 sats were stable in room air both at rest and with activity. lung exam showed improved airation in the bases and less ralres. Total Time Total Time Spent Total Time Spent (In Minutes): 50 Total Time Includes: Examination of the Patient, Discharge Planning, Medication Reconciliation and Communication With Other Providers Discharge Plan Discharge Items Patient Disposition: Home - Self-Care Reason For Visit: POSSIBLE HEMOLYTIC ANEMIA FROM RECENT MALARIA DRUG Discharge Diagnosis: 1. Likely hemolytic anemia from malaria medication (ARTESUNATE); transfusion of 2 units of blood 2. Resolving malaria 3. Possible typhoid fever 4. Abnormal liver function tests - improving nicely; was likely due to the recent malaria Activity: As commented below Activity Comment: gradually increase your activities over the next week Sexual Activity: Wait until after follow-up appointment Exercise/Sports: Wait until after follow-up appointment Driving/Machine Use: Resume 3 days after discharge Non-emergency contact: Primary Care Provider and Specialist Call non-emergency contact if: you have any medication questions, your symptoms worsen and you have a fever Follow-up/Referrals: Theresa Tang MD [Primary Care Provider] - 08/19/20 10:20 am Jeremiah Hill DO [Physician] - (please see Dr Hill, infectious disease, within 1-2 weeks ([facility] office)) Jeffery Meraz MD [Physician] - (see Dr Meraz within 2-3 days ) Diet: Regular Addtl Attending Provider Instructions: You were admitted for recurrent fever and worsening anemia. Your hemoglobin (red cell count) was 6.9 at time of admission. We gave you 2 units of blood, and the hemoglobin has remained stable at about 8.5 since then. Your last fever was on 08/12/2020. Your blood cultures have remained negative (no blood stream infection). Urine culture was negative (UTI has resolved). A stool culture never grew typhoid. The blood specialists (hematology) saw you in consult and felt that your anemia was due to hemolysis. Hemolytic anemia is when your red cells break apart inside the body and the hemoglobin levels drop. It was felt that the recent Artesunate given for the malaria was the likely cause of the hemolysis. The hemolysis improved while hospitalized. Diarrhea, liver function tests, and other blood work continue to improve. Lastly, you have completed your treatment for malaria as of 08/15/20. Recommendations - 1. AVOID Tylenol (acetaminophen) for aches/pains/fever until we verify that your liver function tests have returned to normal. Ok to take motrin/ibuprofen [id number] as needed. 2. Take azithromycin 500mg daily for 3 days starting 08/16/20. This is for possible typhus. 3. Take folic acid 1mg daily until your blood specialist states it is ok to stop. 4. You will need repeat blood work THIS WEEK. Thus, please see the [facility] within 3 days. See separate section with office information/details. 5. See Dr Hill within 1-2 weeks. 6. AVOID ALCOHOL given your abnormal liver tests. Follow-up - see separate section Return to [facility] if - * you develop recurrent fevers over 100 degrees * your diarrhea becomes severe / worsens * you develop shortness of breath * you develop abdominal pain * you develop worsening yellowing of the eyes & skin * any other concerns Pending Studies at Discharge: No Stand-Alone Forms: My [facility], Smoking Cessation Medications and DC Order Prescriptions: New folic acid 1 mg Tablet 1 mg PO QAM Qty: 30 RF: 1 Continued fluocinonide 0.05 % ointment 1 appln topical TID Qty: 1 RF: 0 amlodipine 10 mg tablet 10 mg PO DAILY Qty: 90 RF: 3 carvedilol 25 mg tablet 25 mg PO BID Qty: 180 RF: 3 losartan-hydrochlorothiazide 100-25 mg tablet 1 tab PO DAILY Qty: 90 RF: 3 rshlfbcbq-glietncqbrar-iredckb 600-200-300 mg tablet 1 tab PO DAILY RF: 0 Discharge Orders: Discharge Order (Routine); Ordered 08/15/20 Ordered By: Gerardo Seo Admission Data Admit Date/Time: 08/12/20 16:00 Attending Provider: Gerardo Seo Admit Provider: Nazario Crowder Primary Care Provider: Theresa Tang Other Providers: Nazario Crowder ; Ryan Dutta V. ; Mendez Barrera ; Brittany Rod ; Sami Self I. ; Ky Lizarraga II ; Nora Driver ; Lacho Maria Other Interventions: Discharge Summary Assessment (RN) Last Done: 08/15/20 12:28 Coding Level of Care Code D/C Day Management >30 mins Diagnoses Malaria B54 Hemolytic anemia D59.2 Hemolytic anemia type: acquired, nonautoimmune, drug-induced Diarrhea R19.7 Diarrhea type: unspecified type Typhoid fever A01.00 ALEX (acute kidney injury) N17.9 HIV disease B20 Acute hepatitis B17.9 UTI (urinary tract infection) N39.0 Hypertension I10 Thrombocytopenia D69.6 Pancytopenia D61.818 Abnormal lung sounds R09.89
== END 2020-08-15 17:15 | disposition home or self-care (01) | DRG 809 ==
LOC: ED 11:31 → 2W 16:00 → SUATTDRO 16:00 → 2W 18:10